=== PATIENT | female | born 1975 | race Caucasian/White ===

== ENCOUNTER 2019-04-17 19:16 | Inpatient (IN) | payer OTHER, MEDICARE, SELFPAY ==
[2019-04-17] VITALS (8 sets, daily range): BP systolic 171–178; BP diastolic 101–102; PULSE 80–94; RESP 18; TEMP 36.6–37.3; O2SAT 93–95; BMI 37.5; BMI 37.6
--- NOTE | 2019-04-17 19:19 | EKG12_ITS ---
Test Reason : CP Blood Pressure : / mmHG Vent. Rate : 088 BPM Atrial Rate : 088 BPM P-R Int : 202 ms QRS Dur : 118 ms QT Int : 450 ms P-R-T Axes : 052 037 058 degrees QTc Int : 544 ms Normal sinus rhythm Possible Left atrial enlargement Incomplete left bundle branch block Nonspecific ST abnormality Prolonged QT Abnormal ECG Confirmed by PREMA MARTIN, HUSAM ([id number]), editor magazine DERIK LAM ([id number]) on 04/23/2019 9:38:12 AM Referred By: Dillon Cole Confirmed By:NADYA LLOYD MD
--- NOTE | 2019-04-17 19:27 | ED.VIS.GEN ---
History of Present Illness Chief Complaint: Chest Pain Informant: Patient Onset: Today Current Severity: Mild Narrative: Patient indicates she was walking with a call the heart walk almost a Two Mile Walk it basically involved this Two [place] Walk up and down some slight hills she did develop some shortness of breath and some chest discomfort she is brought to hospital EMS. 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 At this time she is feeling better she has had no abdominal pain some nausea no vomiting normal bowel bladder habits she is status post cholecystectomy 7 years ago Past Medical History - Allergies and Home Meds Allergies/Adverse Reactions: Allergies calcium [From DHEA] Allergy (Verified 04/17/19 19:27) Chest tightness calcium carbonate [From DHEA] Allergy (Verified 04/17/19 19:27) Chest tightness cephalexin [From Keflex] Allergy (Verified 04/17/19 19:27) Rash ketorolac [From Toradol] Allergy (Verified 04/17/19 19:27) Angioedema oxycodone [From Percocet] Allergy (Verified 04/17/19 19:27) Angioedema prasterone (DHEA) [From DHEA] Allergy (Verified 04/17/19 19:27) Chest tightness sumatriptan [From Imitrex] Allergy (Verified 04/17/19 19:27) Swelling azithromycin Adverse Reaction (Verified 04/17/19 19:27) Unknown ondansetron [From Zofran (as hydrochloride)] Adverse Reaction (Verified 04/17/19 19:27) Other Primary Care Physician: [facility] Doctor,Out of [NON-STAFF] - Past Medical History: - - As above the cardiomyopathy causes unspecified per patient not related to ischemic heart disease or valvular heart disease Surgical History: appendectomy, cholecystectomy, hysterectomy Smoking Status: Current every day smoker - Family History Maternal Family History: Reports: Diabetes, Heart Disease Review of Systems General: Denies: Chills, Fever, Sweats Eyes: Denies: Visual changes - bilaterally, Diplopia ENT: Denies: Rhinorrhea, Sore throat Cardiovascular: Reports: Chest pain. Denies: Palpitations Respiratory: Denies: Dyspnea, Cough, Dyspnea on exertion Gastrointestinal: Denies: Abdominal pain, Nausea, Vomiting, Diarrhea, Melena, Hematochezia Genitourinary: Denies: Dysuria, Hematuria, Frequency Musculoskeletal: Denies: Back pain, Extremity Pain Skin: Denies: Rash, Wounds Neurological: Denies: Headache, Weakness, Numbness Physical Exam Vital Signs/Narrative: Vital Signs Temp Pulse Resp BP Pulse Ox 04/17/19 19:16 99.1 F 87 18 171/101 H 94 General: Well nourished, Well developed, No Acute Distress Head: Normocephalic, Atraumatic Eyes: Perrl, EOMI ENT: Moist mucous membranes, No rhinorrhea Neck: Supple, Nontender Cardiovascular: Regular rate, Regular rhythm, No murmurs Respiratory: No distress, CTA bilaterally, Chest nontender Abdomen: Soft, Nontender, Nondistended, Normal bowel sounds Back: Nontender, Normal Inspection Extremities: Nontender, No edema Skin: Normal color, No rash Neurological: Alert, Oriented x3, Cranial nerves II-XII grossly intact, Normal Strength, Normal Sensation Psychological: Normal affect, Normal Mood Diagnostic/Tx/Re-eval - Medical Decision Making His vital signs are unremarkable clinically she looks well she is in no distress she is feeling better now that she is now walking she indicates walking almost 2 miles is very unusual for her to know he does not exert herself to that degree she assures me she recently had a cardiac cath that showed no signs of CAD or ischemic heart disease or valvular heart disease she is been doing well on all her medications, this time EKG is obtained labs chest x-ray IV fluids and observation His EKG is unremarkable showing sinus rhythm no acute injury pattern rate about 90 no change from previous, Screening labs chest x-ray are all unremarkable, continues to have very mild central chest pain second EKG again shows no injury pattern rate again about 90 Complaints given her history of cardiomyopathy given the chest pain I have asked the hospital see her for admission and further management Admit stable Final impression chest pain history of cardiomyopathy ED Disposition - Plan for ED Patient: Diagnosis: Chest pain Referrals: [facility] Doctor,Out of [NON-STAFF] -
--- NOTE | 2019-04-17 19:35 | RAD_ITS ---
STUDY: X-RAY CHEST REASON FOR EXAM: Female, 44 years old. Chest pain and dizziness TECHNIQUE: Single AP portable view of the chest. COMPARISON: Previous study of 02/20/2017 FINDINGS: monitoring analyst leads are present. The lungs are clear and expanded. There is no demonstrated pleural abnormality. There is mild cardiac enlargement. Normal mediastinum and cris. Normal visualized pulmonary arteries. Normal visualized aortic arch and descending thoracic aorta. Normal visualized thoracic spine. Normal visualized ribs, clavicles, and shoulders. There is no demonstrated abnormality of the visualized soft tissue structures of the upper abdomen. RAD/Chest 1 View (Portable) IMPRESSION: Mild cardiomegaly. No acute cardiopulmonary disease process is seen. Electronically Signed: Markus Wen MD at 19:53 EDT , Service support ,
[2019-04-17 20:33] LABS: Absolute Lymphocyte Count 5.21 X10^3/uL (0.83-4.51); Absolute Neutrophil Count 11.7 X10^3/uL (2.0-7.7); Basophil% 0.5 % (0-1); Eosinophil# 0.23 X10^3/uL; Eosinophils% 1.2 % (0-5); Hematocrit 36.5 % (37-47); Hemoglobin 13.3 g/dL (12.0-15.0); Lymphocyte # 5.21 X10^3/ul (4.0); Lymphocyte % 28.1 % (19-41); Mean Corp Hgb Conc 36.4 g/dL (32-36); Mean Corpuscular Volume 85.1 fL (81-99); Mean Platelet Vol. 9.7 fl (6.2-12.0); Monocyte# 0.97 X10^3/uL; Monocyte% 5.2 % (0-10); NRBC Flagged by Analyzer 0 % (0-5); Neutrophil # 11.73 X10^3/uL (2.7-7.7); Neutrophil % 63.4 % (47-70); POSITIVE DIFFERENTIAL YES; Platelet Count 407 K/mm3 (150-450); RBC Distribution Width CV 12.6 % (11.6-14.6); RBC Distribution Width SD 38.9 fl (35.1-43.9); Red Blood Count 4.29 M/mm3 (4.2-5.4); White Blood Count 18.5 K/mm3 (4.4-11.0)
[2019-04-17 20:48] LABS: Differential Indicated SCAN CRITERIA MET
[2019-04-17 21:06] LABS: Anion Gap 11 (5-15); BUN 10 mg/dL (7-18); BUN/Creat Ratio 16.2 RATIO (10-20); Chloride 94 mmol/L (98-107); Creatinine, Serum 0.62 mg/dL (0.55-1.02); EST Glomerular Filtration Rate 113 mL/min (>60); Est Glom Filt Rate - Afr Amer 137 mL/min (>60); Estimated Creatinine Clearance 106.36 ml/min; Glucose 108 mg/dL (74-106); Potassium 2.8 mmol/L (3.5-5.1); Sodium Level 132 mmol/L (136-145)
[2019-04-17 21:08] LABS: Platelet Estimate ADEQUATE (ADEQ); Red Cell Morphology NORM C+C NORMAL (NORM C&C)
--- NOTE | 2019-04-17 21:16 | EKG12_ITS ---
Test Reason : REPEAT Blood Pressure : / mmHG Vent. Rate : 086 BPM Atrial Rate : 086 BPM P-R Int : 196 ms QRS Dur : 114 ms QT Int : 436 ms P-R-T Axes : 059 057 065 degrees QTc Int : 521 ms Normal sinus rhythm Possible Left atrial enlargement Incomplete left bundle branch block Prolonged QT Abnormal ECG Confirmed by PREMA MARTIN, HUSAM ([id number]), international editorial producer DERIK LAM ([id number]) on 04/23/2019 9:38:29 AM Referred By: Dillon Cole Confirmed By:NADYA LLOYD MD
[2019-04-17] MEDS: proMETHazine 25 MG Tablet PO (21:37)
[2019-04-17] MEDS: morphine 8 MG/ML Syringe SC (21:37)
--- NOTE | 2019-04-17 22:05 | HP.PCM_ITS ---
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) Chronic back pain (Chronic) Benign essential HTN (Chronic) Allergies calcium [From DHEA] Allergy (Verified 04/17/19 19:27) Chest tightness calcium carbonate [From DHEA] Allergy (Verified 04/17/19 19:27) Chest tightness cephalexin [From Keflex] Allergy (Verified 04/17/19:) Rash ketorolac [From Toradol] Allergy (Verified 04/17/19 19:) Angioedema oxycodone [From Percocet] Allergy (Verified 04/17/19:) Angioedema prasterone (DHEA) [From DHEA] Allergy (Verified 04/17/19:) Chest tightness sumatriptan [From Imitrex] Allergy (Verified 04/17/19:27) Swelling azithromycin Adverse Reaction (Verified 04/17/19 19:) Unknown ondansetron [From Zofran (as hydrochloride)] Adverse Reaction (Verified 04/17/19 19:) Other Home Medications: Ambulatory Orders Medication Instructions Recorded Amlodipine Besylate [Norvasc] 10 mg PO DAILY PRN PRN 01/28/17 Clonazepam [Klonopin] 1 mg PO TID PRN PRN 01/28/17 Lamotrigine [Lamictal] 200 mg PO QHS 01/28/17 Lisinopril [Zestril] 20 mg PO BID 01/28/17 Metoprolol(XL)Succ [Toprol Xl 100 mg PO DAILY 01/28/17 (Beta Radha)] Paliperidone [Invega] 9 mg PO QHS 01/28/17 Tizanidine HCl [Zanaflex] 4 mg PO TID 01/28/17 hydrALAZINE [Apresoline] 100 mg PO TID 01/28/17 Diphenhydramine HCl [Allergy 25 mg PO PRN PRN 02/20/17 Medication] Gabapentin [Neurontin] 600 mg PO TIDCM 02/20/17 Dicyclomine HCl [Bentyl] 20 mg PO TIDAC #20 cap 07/23/17 Docusate Sodium [Colace] 100 mg PO DAILY #20 cap 01/15/18 Furosemide 40 mg PO DAILY 07/23/17 Zolpidem Tartrate [Ambien] 10 mg PO QHS 07/23/17 proMETHazine tablet [Phenergan] 25 mg PO Q6H PRN PRN #10 tab 07/23/17 Surgical History: appendectomy, cholecystectomy, hysterectomy Psychiatric History: Bipolar - sees psychiatry in [place] Smoking Status: Current every day smoker - *Family History Maternal History Items: Diabetes, Heart Disease Patient Problems: Active and Suspected Problems Chest pain (Acute) - Physical Exam Vital Signs Temp Pulse Resp BP Pulse Ox 99.1 F 94 18 171/101 H 93 04/17/19 19:16 04/17/19 20:32 04/17/19 20:32 04/17/19 19:16 04/17/19 19:28 Oxygen Flow Rate (L/min) 2 Oxygen Delivery Method Nasal Cannula Weight: 225 lb 12.054 oz Body Mass Index (BMI) 37.5 Laboratory Tests Past 24 Hrs 04/17/19 04/17/19 20:20 20:20 WBC 18.5 H RBC 4.29 Hgb 13.3 Hct 36.5 L MCV 85.1 MCH 31.0 MCHC 36.4 H RDW Std Deviation 38.9 RDW Coeff of Caden 12.6 Plt Count 407 MPV 9.7 Immature Gran % (Auto) 1.600 H Neut % (Auto) 63.4 Lymph % (Auto) 28.1 [place] % (Auto) 5.2 Eos % (Auto) 1.2 Baso % (Auto) 0.5 Absolute Neuts (auto) 11.7 H Absolute Lymphs (auto) 5.21 H Nucleated RBC % 0 Differential Comment SEE COMMENT Diff Path Review May foll Platelet Estimate ADEQUATE RBC Morphology NORM C+C Sodium 132 L Potassium 2.8 L Chloride 94 L Carbon Dioxide 27.0 Anion Gap 11 BUN 10 Creatinine 0.62 Estim Creat Clear Calc 106.36 Est GFR (MDRD) Af Amer 137 Est GFR (MDRD) Non-Af 113 BUN/Creatinine Ratio 16.2 Glucose 108 H Calcium 9.0 Troponin I 0.034 Assessment/Plan All Active Problems Chest pain (Acute) Hypertensive urgency, malignant (Acute) Diabetes (Acute) Anxiety (Acute)
--- NOTE | 2019-04-17 22:06 | PCM.HP.STD ---
Problem List (1) Chest pain Status: Acute (2) Hypertensive urgency, malignant Status: Acute (3) Diabetes Status: Chronic Qualifiers: Diabetes mellitus type: type 2 Diabetes mellitus superintendent container terminal insulin use: without superintendent container terminal use Diabetes mellitus complication status: without complication Qualified Code(s): E11.9 - Type 2 diabetes mellitus without complications (4) Anxiety Status: Acute (5) DJD (degenerative joint disease) of lumbar spine Status: Chronic (6) Chronic back pain Status: Chronic Qualifiers: Back pain location: low back pain Back pain laterality: midline Sciatica presence: without sciatica Qualified Code(s): M54.5 - Low back pain; G89.29 - Other chronic pain (7) Benign essential HTN Status: Chronic History of Present Illness Date of Admission: 04/17/19 Chief Complaint: Chest pain The patient is a 44 year old F with history of hypertensive cardiomyopathy, uncontrolled hypertension came to ER for chest pain. Chest pain started while patient was walking Two Mile Walk, started about 6:00 evening today and is still persistent although it is improved. Patient felt like smoldering midsternal pain with radiation to jaw associated with shortness of breath, palpitation but no diaphoresis. She also felt dizziness and feeling like pass out. Patient also sent she had a history of anxiety. Complaint of frontal headache but no blurry vision, diplopia or hemianopia. Patient was admitted for hypertension emergency in ICU in January 2017 and at that time blood pressure was controlled and MRI brain was done which shows empty sella syndrome. Patient had last severe chest pain about 2 years ago for which a stress test was inconclusive therefore had cardiac cath which was negative. She also gets intermittent chest pain on exertion/walking. In ED, blood pressure is elevated 171/101, map 124, heart rate 87 no tachypnea or hypoxia. Basic blood work shows leukocytosis 18.5 thousand, neutrophils 63%. Sodium 132, K2.8, glucose 108. First troponin negative. EKG in ER shows normal sinus rhythm possible LAE at 90 bpm. Previous EKG of February 2017 shows similar pattern normal sinus rhythm with first-degree AV block. QTc interval has prolonged, QTC 482 ms then but now 521 ms. Patient also complained of mild cough but denies sinus congestion, runny nose or sore throat. Chest x-ray no acute cardiopulmonary disease. 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) Chronic back pain (Chronic) Benign essential HTN (Chronic) Allergies calcium [From DHEA] Allergy (Verified 04/17/19:) Chest tightness calcium carbonate [From DHEA] Allergy (Verified 04/17/19:) Chest tightness cephalexin [From Keflex] Allergy (Verified 04/17/19:) Rash ketorolac [From Toradol] Allergy (Verified 04/17/19) Angioedema oxycodone [From Percocet] Allergy (Verified 04/17/19) Angioedema prasterone (DHEA) [From DHEA] Allergy (Verified 04/17/19:) Chest tightness sumatriptan [From Imitrex] Allergy (Verified 04/17/19) Swelling azithromycin Adverse Reaction (Verified 04/17/19) Unknown ondansetron [From Zofran (as hydrochloride)] Adverse Reaction (Verified 04/17/19) Other Home Medications: Ambulatory Orders Medication Instructions Recorded Amlodipine Besylate [Norvasc] 10 mg PO DAILY PRN PRN 01/28/17 Clonazepam [Klonopin] 1 mg PO TID PRN PRN 01/28/17 Lamotrigine [Lamictal] 200 mg PO QHS 01/28/17 Lisinopril [Zestril] 20 mg PO BID 01/28/17 Metoprolol(XL)Succ [Toprol Xl 100 mg PO DAILY 01/28/17 (Beta Radha)] Paliperidone [Invega] 9 mg PO QHS 01/28/17 Tizanidine HCl [Zanaflex] 4 mg PO TID 01/28/17 hydrALAZINE [Apresoline] 100 mg PO TID 01/28/17 Diphenhydramine HCl [Allergy 25 mg PO PRN PRN 02/20/17 Medication] Gabapentin [Neurontin] 600 mg PO TIDCM 02/20/17 Dicyclomine HCl [Bentyl] 20 mg PO TIDAC #20 cap 07/23/17 Docusate Sodium [Colace] 100 mg PO DAILY #20 cap 07/23/17 Furosemide 40 mg PO DAILY 07/23/17 Zolpidem Tartrate [Ambien] 10 mg PO QHS 07/23/17 proMETHazine tablet [Phenergan] 25 mg PO Q6H PRN PRN #10 tab 07/23/17 Surgical History: appendectomy, cholecystectomy, hysterectomy Psychiatric History: Bipolar - sees psychiatry in [place] Smoking Status: Current every day smoker - *Family History Maternal History Items: Diabetes, Heart Disease Review of Systems Constitutional: Reports: Malaise, Weakness. Denies: Chills, Fever, Weight Change HEENT: Denies: Head Aches, Sinus Congestion, Sinus Drainage Cardiovascular: Reports: Chest Pain, Chest Pressure, Edema, Palpitations Respiratory: Reports: Cough, Shortness of breath upon exertion. Denies: Shortness of breath at rest, Sputum production Gastrointestinal: Denies: Abdominal Pain, Nausea, Vomiting Genitourinary: Denies: Dysuria, Frequency, Incontinence, Retention, Urgency Musculoskeletal: Denies: Joint Pain, Joint Tenderness Skin: Denies: Rash, Wounds Neurological: Denies: Numbness, Tingling, Focal weakness Psychiatric: Reports: Anxiety, Depression. Denies: Homicidal Ideations, Suicidal Ideations Hematologic/ Lymphatic: Denies: Easy Bruising, Easy Bleeding VTE Information - Inpt Only VTE Present on Admission: No VTE Mechan Device Prophylaxis: None VTE Pharm Prophylaxis ordered?: Yes Patient Problems: Active and Suspected Problems Chest pain (Acute) - Physical Exam General: Alert, Oriented x3, Cooperative HEENT: Atraumatic, PERRLA, EOMI, Normocephalic Neck: Supple, No JVD, Negative Carotid Bruits Lungs: Clear to auscultation, Normal air movement, No rhonchi, No wheeze, No rales Cardiovascular: Regular rate, Regular Rhythm, Normal S1, Normal S2, No murmurs Abdomen: Bowel Sounds Present, Soft, Non Tender, Non-Distended Extremities: Capillary Refill Less than 3 Seconds, Edema - Mild ankle edema Skin: No rashes, No breakdown Musculoskeletal: No Tenderness to Palpation of Joints or Extremities Neurological: Cranial nerves II-XII grossly intact, Deep Tendon Reflexes 2+/4 and Symmetrical, Neuro grossly intact, Motor Exam 5/5 strength throughout Psych/Mental Status: Normal Affect, Appropriate Vital Signs Temp Pulse Resp BP Pulse Ox 99.1 F 94 18 171/101 H 93 04/17/19 19:16 04/17/19 20:32 04/17/19 20:32 04/17/19 19:16 04/17/19 19:28 Oxygen Flow Rate (L/min) 2 Oxygen Delivery Method Nasal Cannula Weight: 225 lb 12.054 oz Body Mass Index (BMI) 37.5 Laboratory Tests Past 24 Hrs 04/17/19 04/17/19 20:20 20:20 WBC 18.5 H RBC 4.29 Hgb 13.3 Hct 36.5 L MCV 85.1 MCH 31.0 MCHC 36.4 H RDW Std Deviation 38.9 RDW Coeff of Caden 12.6 Plt Count 407 MPV 9.7 Immature Gran % (Auto) 1.600 H Neut % (Auto) 63.4 Lymph % (Auto) 28.1 [place] % (Auto) 5.2 Eos % (Auto) 1.2 Baso % (Auto) 0.5 Absolute Neuts (auto) 11.7 H Absolute Lymphs (auto) 5.21 H Nucleated RBC % 0 Differential Comment SEE COMMENT Diff Path Review May foll Platelet Estimate ADEQUATE RBC Morphology NORM C+C Sodium 132 L Potassium 2.8 L Chloride 94 L Carbon Dioxide 27.0 Anion Gap 11 BUN 10 Creatinine 0.62 Estim Creat Clear Calc 106.36 Est GFR (MDRD) Af Amer 137 Est GFR (MDRD) Non-Af 113 BUN/Creatinine Ratio 16.2 Glucose 108 H Calcium 9.0 Troponin I 0.034 Assessment/Plan All Active Problems Chest pain (Acute) Hypertensive urgency, malignant (Acute) Anxiety (Acute) The patient is a 44 year old F with history of hypertensive cardiomyopathy, uncontrolled hypertension came to ER for chest pain. Chest pain started while patient was walking [place] Walk, started about 6:00 evening today and is still persistent although it is improved. Patient felt like smoothing midsternal pain with radiation to jaw associated with shortness of breath, palpitation but no diaphoresis. She also felt dizziness and feeling like pass out. Patient also sent she had a history of anxiety. Complaint of frontal headache but no blurry vision, diplopia or hemianopia. . Basic blood work shows leukocytosis 18.5 thousand, neutrophils 63%. Sodium 132, K2.8, glucose 108. First troponin negative. EKG in ER shows normal sinus rhythm possible LAE at 90 bpm. Previous EKG of February 2017 shows similar pattern normal sinus rhythm with first-degree AV block. QTc interval has prolonged, QTC 482 ms then but now 521 ms. Patient also complained of mild cough but denies sinus congestion, runny nose or sore throat. Chest x-ray no acute cardiopulmonary disease. 1. Atypical chest pain with history of hypertensive cardiomyopathy: Patient is being admitted in PCU. Serial troponin enzymes. Treadmill nuclear stress test tomorrow a.m. Try to get previous stress test, cardiac cath and other work-up done in [facility] about 2 to 3 years ago. On baby aspirin, nitro sublingual as needed. 2. Hypertensive urgency with hypertensive cardiomyopathy and possible nonischemic cardiomyopathy, exact etiology and type unclear: Mild cardiac enlargement chest x-ray. Continue patient blood pressure medication amlodipine 10 mg daily, lisinopril 20 mg twice daily, hydralazine 100 mg 3 times daily and metoprolol. She states he has mild congestive heart failure and on Lasix 40 mg daily. Patient seems dehydrated with hyponatremia and hypokalemia; chest x-ray is clear and no significant leg swelling therefore will hold Lasix. 2D echo ordered. Hydralazine 10 mg IV every 4 hourly as needed for systolic blood pressure more than 170 mmHg. BNP ordered Patient was admitted for hypertension emergency in ICU in January 2017 and at that time blood pressure was controlled and MRI brain was done which shows empty sella syndrome. 3. Leukocytosis, etiology unclear: Respiratory panel ordered. No fever or chills. UA with reflex urine culture ordered. No need for antibiotic. 4. Electrolyte abnormality: Hyponatremia, hypokalemia and hypochloremia probably secondary to dehydration: IV fluid normal saline at 125 mill per hour. Potassium replacement. Check magnesium and phosphorus. Anxiety, nausea, generalized weakness secondary to heart walk: Symptomatic management. Medication reconciliation done. DVT prophylaxis: Lovenox 40 mg subcu daily Laboratory Results 04/17/19 20:20: WBC 18.5 H, RBC 4.29, Hgb 13.3, Hct 36.5 L, MCV 85.1, MCH 31.0, MCHC 36.4 H, RDW Std Deviation 38.9, RDW Coeff of Caden 12.6, Plt Count 407, MPV 9.7, Immature Gran % (Auto) 1.600 H, Neut % (Auto) 63.4, Lymph % (Auto) 28.1, [place] % (Auto) 5.2, Eos % (Auto) 1.2, Baso % (Auto) 0.5, Absolute Neuts (auto) 11.7 H, Absolute Lymphs (auto) 5.21 H, Nucleated RBC % 0, Differential Comment SEE COMMENT, Diff Path Review May foll, Platelet Estimate ADEQUATE, RBC Morphology NORM C+C 04/17/19 20:20: Sodium 132 L, Potassium 2.8 L, Chloride 94 L, Carbon Dioxide 27.0, Anion Gap 11, BUN 10, Creatinine 0.62, Estim Creat Clear Calc 106.36, Est GFR (MDRD) Af Amer 137, Est GFR (MDRD) Non-Af 113, BUN/Creatinine Ratio 16.2, Glucose 108 H, Calcium 9.0, Troponin I 0.034 Clinical Impression(s) from Imaging Studies Chest X-Ray 04/17/19 19:35 IMPRESSION: Mild cardiomegaly. No acute cardiopulmonary disease process is seen. Code Visit OBSV E&M: [id number] Initial observation care L3
--- NOTE | 2019-04-17 22:42 | ECHOCS_ITS ---
Reason For Study: Cardiomyopathy Procedure This was a 2D Doppler, Color Flow transthoracic echocardiogram. The study was technically difficult. Contrast injection was performed. Patient had symptoms of chest pain, dizziness and HTN while at the Heart Walk on 04/17/2019. Exam performed portable in ICU/CCU. Left Ventricle Severe concentric left ventricular hypertrophy. The estimated ejection fraction is 65 %. Stage 1 diastolic dysfunction. No regional wall motion abnormalities noted. Right Ventricle Normal size and thickness. Normal systolic function. Atria Normal left atrium. Normal right atrium. Normal atrial septum. Mitral Valve The mitral valve is structurally normal. No prolapse or stenosis seen. Trivial mitral valve insufficiency. Tricuspid Valve Normal tricuspid valve. Trivial tricuspid valve insufficiency. Right ventricular systolic pressure estimated to be 23 mmHg. Aortic Valve Trisinus/trileaflet aortic valve. Normal aortic valve. Pulmonic Valve Normal pulmonic valve. Trivial pulmonic valve insufficiency. Great Vessels Normal aortic root. Normal arch. Normal inferior vena cava. Inferior vena cava collapse with sniff. Pericardium/Pleural No pericardial effusion. Medication Diluted definity 2ml given slow IV push to enhance endocardial definition. MMode/2D Measurements & Calculations LVIDd: 4.5 cm IVSd: 2.2 cm Ao root diam: 3.3 cm LVIDs: 3.5 cm LVPWd: 1.6 cm FS: 22.2 % LAV(MOD-bp): 63.7 ml LVAd ap4: 36.9 cm2 SV(MOD-sp4): 83.6 ml LAV(MOD-bp) Indexed: 30.6 ml/m2 EDV(MOD-sp4): 128.8 ml LAV(MOD-sp2): 65.5 ml EDV(sp4-el): 135.1 ml LAV(MOD-sp4): 61.6 ml LVAs ap4: 19.5 cm2 ESV(MOD-sp4): 45.2 ml ESV(sp4-el): 45.1 ml EF(MOD-sp4): 64.9 % EF(sp4-el): 66.6 % SV(sp4-el): 90.0 ml LA A4 area: 21.0 cm2 Time Measurements MV dec time: 0.26 sec Doppler Measurements & Calculations MV E max ramin: 66.1 cm/sec Lat Peak E' Ramin: 5.0 cm/sec Med Peak E' Ramin: 5.7 cm/sec MV A max ramin: 75.1 cm/sec E/E' lat: 13.3 E/E' med: 11.6 MV E/A: 0.88 MV V2 max: 87.4 cm/sec MV P1/2t max ramin: 80.2 cm/sec Ao V2 max: 159.4 cm/sec MV max P.1 mmHg MV P1/2t: 57.0 msec Ao max P.2 mmHg MV V2 mean: 50.8 cm/sec Ao V2 mean: 102.2 cm/sec MV mean P.2 mmHg MV dec slope: 412.7 cm/sec2 Ao mean P.9 mmHg MV V2 VTI: 29.5 cm MVA(P1/2t): 3.9 cm2 Ao V2 VTI: 27.0 cm LV V1 max: 122.7 cm/sec PA V2 max: 101.1 cm/sec LV V1 max P.0 mmHg LV V1 mean P.9 mmHg LV V1 mean: 78.4 cm/sec LV V1 VTI: 23.7 cm Interpretation Summary Severe concentric left ventricular hypertrophy. The estimated ejection fraction is 65 %. Stage 1 diastolic dysfunction. Trivial mitral valve insufficiency. Trivial tricuspid valve insufficiency. Right ventricular systolic pressure estimated to be 23 mmHg. There is no comparison study available. The study was technically difficult. Contrast injection was performed. Ordering Physician: Dillon Cole Referring Physician: Angel Carnes Performed By: Kvng Ba RCS
--- NOTE | 2019-04-17 22:42 | EKG12_ITS ---
Test Reason : CP ADMISSION Blood Pressure : / mmHG Vent. Rate : 077 BPM Atrial Rate : 077 BPM P-R Int : 194 ms QRS Dur : 120 ms QT Int : 478 ms P-R-T Axes : 044 044 060 degrees QTc Int : 540 ms Normal sinus rhythm Non-specific intra-ventricular conduction delay Borderline ECG When compared with ECG of 20-FEB-2017 08:13, QT has lengthened Confirmed by KATIE SOMERS ([id number]), school photograph editor DERIK LAM ([id number]) on 04/23/2019 10:38:47 AM Referred By: Dillon Cole Confirmed By:KATIE SOMERS
[2019-04-17 22:53] LABS: Magnesium 1.6 mg/dL (1.6-2.6)
[2019-04-17 23:11] LABS: BNP,B-Type NATRIURETIC PEPTIDE 91.6 pg/mL (0-100)
[2019-04-18] VITALS (43 sets, daily range): BP systolic 108–190; BP diastolic 44–125; PULSE 66–87; RESP 14–24; TEMP 36.3–37.2; O2SAT 91–98
[2019-04-18] MEDS: proCHLORPERazine 10 MG/2 ML Vial 5 MG IV ×5 (00:27→21:32)
[2019-04-18] MEDS: Morphine 2 MG/ML Syringe IV (00:28)
[2019-04-18] MEDS: 0.9% NaCl Peripheral Flush Adult/Peds IV ×7 (00:28→17:58)
[2019-04-18] MEDS: 0.9% Normal Saline 1,000 ML 125 ML IV (00:28)
[2019-04-18] MEDS: Enoxaparin 40 MG/0.4 ML Syringe SC (00:42)
[2019-04-18] MEDS: Metoprolol(XL)Succ 100 MG Tablet PO (00:43)
[2019-04-18] MEDS: Lisinopril 20 MG Tablet PO ×3 (00:43→21:30)
[2019-04-18] MEDS: amLODIPine 10 MG Tablet PO ×2 (00:43→09:01)
[2019-04-18 01:01] LABS: Mucous, Urine 0 SEEN /hpf (<or=2+); Red Blood Cells-Urine 0 SEEN /hpf (0-5); White Blood Cells 0 SEEN /hpf (0-5)
[2019-04-18 01:04] LABS: Color, Urine Straw (Yellow); Glucose, Dipstick Normal (Normal); Ketone-Dipstick Negative (Negative); Leukocyte Esterase-Dipstick Negative /ul (Negative); Nitrite-Dipstick Negative (Negative); Occult Blood-Urine Negative /ul (Negative); Protein-Dipstick Negative (Negative); Specific Gravity, Urine 1.005 (1.002-1.030); Urine Bilirubin Dipstick Negative (Negative); Urine Clarity Clear (Clear); Urine Urobilinogen Normal (Normal)
[2019-04-18 01:09] LABS: Squamous Epithelial Cells - UA 0-5 SEEN /hpf (5-10)
[2019-04-18 01:10] LABS: Bacteria RARE /hpf (None Seen)
[2019-04-18 02:00] LABS: Bedside Glucose 107 mg/dL (70-110)
[2019-04-18] MEDS: hydrALAZINE 20 MG/ML Vial 10 MG IV (02:19)
[2019-04-18] MEDS: Enoxaparin 60 MG/0.6 ML Syringe SC (02:20)
[2019-04-18] MEDS: Ziprasidone HCl 20 MG Capsule 160 MG PO (02:24)
[2019-04-18] MEDS: Morphine 4 MG/ML Syringe IV ×3 (02:33→21:31)
--- NOTE | 2019-04-18 02:49 | CT_ITS ---
STUDY: CTA CHEST REASON FOR EXAM: Female, 44 years old. Chest pain. Dyspnea. RADIATION DOSAGE (If Supplied By Facility): CTDIvol = ( 16.22 ) mGy, DLP = ( 1029.42 ) mGycm TECHNIQUE: The examination was performed with the intravenous administration of IV 100mL Isovue-370 100ML. Post-processing of the angiographic images was performed, with multiplanar reformation and 3D reconstruction. Individualized dose optimization techniques were used for this CT. COMPARISON: None. FINDINGS: Normal enhancement of the main pulmonary artery and right and left pulmonary arteries. Normal enhancement of the bilateral peripheral pulmonary arteries. There is no demonstrated pulmonary embolism. Normal thoracic aorta and visualized great vessels. There is no demonstrated aortic dissection. Normal heart and pericardium. Normal mediastinum. Normal hilar regions. Normal visualized trachea and bronchi. The lungs are well expanded. Patchy alveolar opacities are seen in both lungs more prominent in the right upper lobe, right middle lobe and right lower lobe most likely represent bilateral pneumonia. There is a 1.7 cm nodule with central calcification is seen in the posterior segment of right lung upper lobe is most likely a granuloma. Normal pleura. Normal chest wall structures. Normal osseous structures. Normal visualized upper abdomen. CT/CTA Chest W/WO Contrast IMPRESSION: No demonstrated pulmonary embolism or arterial dissection. Bilateral patchy pneumonia. There is a 1.7 cm nodule with central calcification is seen in the posterior segment of right lung upper lobe is most likely a granuloma. Follow-up in 6 month would be helpful to ensure stability. Electronically Signed: Mata Bang, at 5:09 EDT Tel , Service support ,
[2019-04-18 03:18] LABS: Anion Gap 8 (5-15); BUN 5 mg/dL (7-18); BUN/Creat Ratio 10.8 RATIO (10-20); Calcium,Total 9.1 mg/dL (8.5-10.1); Chloride 99 mmol/L (98-107); Cholesterol 182 mg/dL (200); Creatinine, Serum 0.46 mg/dL (0.55-1.02); EST Glomerular Filtration Rate 157 mL/min (>60); Est Glom Filt Rate - Afr Amer 190 mL/min (>60); Estimated Creatinine Clearance 137.58 ml/min; Glucose 106 mg/dL (74-106); High Density Lipoprotein 37 mg/dL; Phosphorus 3.1 mg/dL (2.5-4.9); Potassium 3.4 mmol/L (3.5-5.1); Sodium Level 134 mmol/L (136-145); Triglycerides 418 mg/dL
[2019-04-18 03:28] LABS: Absolute Lymphocyte Count 6.97 X10^3/uL (0.83-4.51); Basophil# 0.14 X10^3/uL; Basophil% 0.8 % (0-1); Eosinophil# 0.19 X10^3/uL; Hematocrit 39.6 % (37-47); Hemoglobin 14.1 g/dL (12.0-15.0); Lymphocyte # 6.97 X10^3/ul (4.0); Lymphocyte % 37.5 % (19-41); Mean Corp Hgb Conc 35.6 g/dL (32-36); Mean Corpuscular Hgb 30.4 pg (27.0-32.0); Mean Corpuscular Volume 85.3 fL (81-99); Mean Platelet Vol. 11.2 fl (6.2-12.0); Monocyte# 1.07 X10^3/uL; Monocyte% 5.7 % (0-10); NRBC Flagged by Analyzer 0 % (0-5); Neutrophil # 10.02 X10^3/uL (2.7-7.7); Neutrophil % 53.8 % (47-70); POSITIVE DIFFERENTIAL YES; POSITIVE MORPHOLOGY YES; Platelet Count 303 K/mm3 (150-450); RBC Distribution Width CV 12.6 % (11.6-14.6); RBC Distribution Width SD 38.5 fl (35.1-43.9); Red Blood Count 4.64 M/mm3 (4.2-5.4); White Blood Count 18.6 K/mm3 (4.4-11.0)
[2019-04-18 03:29] LABS: Differential Indicated SCAN CRITERIA MET
[2019-04-18] MEDS: Nitroglycerin Infusion 250 ML 12 MG CONT INF (03:39)
[2019-04-18] MEDS: Clopidogrel Bisulfate 300 MG Tablet PO (03:56)
[2019-04-18 04:35] LABS: International Normalized Ratio 1.1; Prothrombin Time (Protime)PT. 13.6 SECONDS (11.7-14.9)
[2019-04-18 04:40] LABS: Partial Thromboplast Time 38.7 Seconds (24.1-36.2)
[2019-04-18 05:00] LABS: Hemoglobin A1c 6.6 % (4.2-6.3)
[2019-04-18] MEDS: hydrALAZINE 50 MG Tablet 100 MG PO ×3 (05:59→21:30)
[2019-04-18] MEDS: cloNIDine HCl 0.2 MG Tablet PO ×3 (06:02→21:29)
[2019-04-18 06:05] LABS: Thyroid Stim Hormone (TSH) 3.19 uIU/mL (0.358-3.74)
[2019-04-18 06:30] LABS: Bedside Glucose 139 mg/dL (70-110)
--- NOTE | 2019-04-18 07:21 | PN_ITS ---
Patient Problems: Active and Suspected Problems Chest pain (Acute) Subjective: CC follow-up chest pain Patient is a 44-year-old lady admitted with chest pain patient was found to have slightly elevated troponin. Was also found to have markedly elevated blood pressure started on nitroglycerin drip and subsequently transferred to the intensive care unit. Objective: GENERAL: cooperative HEENT: Atraumatic; moist oral mucosa EYES; Anicteric, Normal Conjunctiva NECK; supple, normal thyroid, no distended JVD. RESPIRATORY: Diminished to auscultation bilaterally, CARDIOVASCULAR: Regular S1 S2, no audible murmurs GI: soft, non-tender, normoactive bowel sounds, : No Renal angle tenderness; EXTREMITIES: No edema, no clubbing, no cyanosis. MUSCULOSKELETAL: No Joint Tenderness; no muscle waisting NEURO: Awake; no lateralizing signs. SKIN: No Rash PSYCH; Normal affect Vitals/I&O's: Vital Signs Temp Pulse Resp BP Pulse Ox 98.7 F 71 18 139/88 H 97 04/18/19 06:04 04/18/19 06:04 04/18/19 06:04 04/18/19 06:04 04/18/19 06:04 Oxygen Flow Rate (L/min) 2 Oxygen Delivery Method Nasal Cannula Weight: 97.8 kg Body Mass Index (BMI) 37.5 Intake and Output for Last 24 Hours 04/16/19 04/17/19 04/18/19 23:59 23:59 23:59 Intake Total 923.42 / 923.42 Output Total 700 / 700 Balance 223.42 / 223.42 Microbiology Past 72 Hours 04/17/19 22:50 Mucosa - Nasopharyngeal Respiratory Panel (PCR) - Final Laboratory Results 04/17/19 20:20: WBC 18.5 H, RBC 4.29, Hgb 13.3, Hct 36.5 L, MCV 85.1, MCH 31.0, MCHC 36.4 H, RDW Std Deviation 38.9, RDW Coeff of Caden 12.6, Plt Count 407, MPV 9.7, Immature Gran % (Auto) 1.600 H, Neut % (Auto) 63.4, Lymph % (Auto) 28.1, [place] % (Auto) 5.2, Eos % (Auto) 1.2, Baso % (Auto) 0.5, Absolute Neuts (auto) 11.7 H, Absolute Lymphs (auto) 5.21 H, Nucleated RBC % 0, Differential Comment SEE COMMENT, Diff Path Review May katia, Platelet Estimate ADEQUATE, RBC Morphology NORM C+C 04/17/19 20:20: Sodium 132 L, Potassium 2.8 L, Chloride 94 L, Carbon Dioxide 27.0, Anion Gap 11, BUN 10, Creatinine 0.62, Estim Creat Clear Calc 106.36, Est GFR (MDRD) Af Amer 137, Est GFR (MDRD) Non-Af 113, BUN/Creatinine Ratio 16.2, Glucose 108 H, Calcium 9.0, Troponin I 0.034 04/17/19 20:20: Magnesium 1.6 04/17/19 20:20: B-Natriuretic Peptide 91.6 04/17/19 23:10: Troponin I 0.161 H 04/18/19 00:45: Urine Color Straw, Urine Clarity Clear, Urine pH 7.0, Ur Specific [place] 1.005, Urine Protein Negative, Urine Glucose (UA) Normal, Urine Ketones Negative, Urine Occult Blood Negative, Urine Nitrite Negative, Urine Bilirubin Negative, Urine Urobilinogen Normal, Ur Leukocyte Esterase Negative, Urine RBC 0 SEEN, Urine WBC 0 SEEN, Ur Squamous Epith Cells 0-5 SEEN, Urine Bacteria RARE, Urine Mucus 0 SEEN 04/18/19 01:53: POC Glucose 107 04/18/19 02:32: Sodium 134 L, Potassium 3.4 L, Chloride 99, Carbon Dioxide 27.0, Anion Gap 8, BUN 5 L, Creatinine 0.46 L, Estim Creat Clear Calc 137.58, Est GFR (MDRD) Af Amer 190, Est GFR (MDRD) Non-Af 157, BUN/Creatinine Ratio 10.8, Glucose 106, Calcium 9.1, Triglycerides 418 H, Cholesterol 182, LDL Cholesterol TNP, VLDL Cholesterol TNP, HDL Cholesterol 37 L, TSH 3.19 04/18/19 02:32: WBC 18.6 H, RBC 4.64, Hgb 14.1, Hct 39.6, MCV 85.3, MCH 30.4, MCHC 35.6, RDW Std Deviation 38.5, RDW Coeff of [place] 12.6, Plt Count 303, MPV 11.2, Immature Gran % (Auto) 1.200 H, Neut % (Auto) 53.8, Lymph % (Auto) 37.5, [place] % (Auto) 5.7, Eos % (Auto) 1.0, Baso % (Auto) 0.8, Absolute Neuts (auto) 10.0 H, Absolute Lymphs (auto) 6.97 H, Nucleated RBC % 0 04/18/19 02:32: Troponin I 0.146 H 04/18/19 02:32: Potassium Cancelled, Phosphorus 3.1 04/18/19 02:32: Hemoglobin A1c 6.6 H 04/18/19 03:50: PT 13.6, INR 1.1, APTT 38.7 H 04/18/19 06:24: POC Glucose 139 H Current Medications Acetaminophen (Tylenol) 650 mg PO Q6H PRN PRN PRN Reason: Pain Score 1-3/Temp > 100.7 F Amlodipine Besylate (Norvasc) 10 mg PO DAILY [facility] Last Admin: 04/18/19 00:43 Dose: 10 mg Documented by: Aspirin (Ecotrin) 81 mg PO DAILY@0800 [facility] Clonazepam (Klonopin) 1 mg PO TID PRN PRN PRN Reason: ANXIETY Clonidine (Catapres) 0.2 mg PO TID [facility] Last Admin: 04/18/19 06:02 Dose: 0.2 mg Documented by: Clopidogrel Bisulfate (Plavix) 75 mg PO DAILY [facility] Dextrose (D50w Syringe) 0 gm IV X1 PRN; Protocol PRN Reason: Hypoglycemia Diphenhydramine HCl (Benadryl) 25 mg PO Q6H PRN PRN PRN Reason: ITCHING Docusate Sodium (Colace) 100 mg PO DAILY [facility] Enoxaparin Sodium (Lovenox) 40 mg SC DAILY@1000 [facility] Last Admin: 04/18/19 00:42 Dose: 40 mg Documented by: Gabapentin (Neurontin) 600 mg PO TIDCM [facility] Glucagon () 1 mg IM .X1 PRN PRN Reason: Hypoglycemia Hydralazine HCl (Apresoline) 100 mg PO TID [facility] Last Admin: 04/18/19 05:59 Dose: 100 mg Documented by: Hydralazine HCl (Apresoline Iv) 10 mg IV Q4H PRN PRN PRN Reason: SBP>170 mmhg Last Admin: 04/18/19 02:19 Dose: 10 mg Documented by: Sodium Chloride () 1,000 mls @ 75 mls/hr IV .[id number] [facility] Last Infusion: 04/18/19 06:05 Dose: 75 mls/hr Documented by: Sodium Chloride () 250 mls @ 15 mls/hr IV .[id number] PRN PRN Reason: SALINE FLUSH Nitroglycerin/Dextrose () 250 mls @ 12 mls/hr CONT INF .[id number] [facility]; Protocol Last Titration: 04/18/19 06:04 Dose: 20 mcg/min, 12 mls/hr Documented by: Lamotrigine (Lamictal) 200 mg PO QHS [facility] Lisinopril (Zestril) 20 mg PO BID [facility] Last Admin: 04/18/19 00:43 Dose: 20 mg Documented by: Lorazepam (Ativan) 2 mg PO Q4H PRN PRN PRN Reason: ANXIETY Metoprolol Succinate (Toprol Xl (Beta Radha)) 100 mg PO DAILY [facility] Last Admin: 04/18/19 00:43 Dose: 100 mg Documented by: Morphine Sulfate () 4 mg IV Q3H PRN PRN PRN Reason: Pain Score 6-10/10 Last Admin: 04/18/19 02:33 Dose: 4 mg Documented by: Morphine Sulfate () 2 mg IV Q3H PRN PRN PRN Reason: Pain Score 4-5/10 Last Admin: 04/18/19 00:28 Dose: 2 mg Documented by: Oxcarbazepine (Trileptal) 600 mg PO DAILY [facility] Oxcarbazepine (Trileptal) 900 mg PO QHS [facility] Prochlorperazine Edisylate (Compazine Iv) 5 mg IV Q4H PRN PRN PRN Reason: Breakthrough Nausea/Vomiting Last Admin: 04/18/19 04:08 Dose: 5 mg Documented by: Senna/Docusate Sodium (Senokot-S, Christel-Colace) 2 tablet PO BID PRN PRN PRN Reason: Constipation Sodium Chloride () 5 - 15 ml IV UD PRN PRN Reason: SALINE FLUSH Last Admin: 04/18/19 04:08 Dose: 10 ml Documented by: Tizanidine HCl (Zanaflex) 4 mg PO TID PRN PRN PRN Reason: MUSCLE SPASMS Zolpidem Tartrate (Ambien (Generic)) 5 mg PO QHS PRN PRN Reason: INSOMNEA Medical Necessity - Tobacco Use Smoking Status: Current every day smoker Tobacco Use: Cigarettes Assessment/Plan All Active Problems Chest pain (Acute) Hypertensive urgency, malignant (Acute) Anxiety (Acute) Patient is a 44-year-old lady admitted with chest pain patient was found to have slightly elevated troponin. Was also found to have markedly elevated blood pressure started on nitroglycerin drip and subsequently transferred to the intensive care unit. 1. Unstable angina: ~Patient admitted to monitored bed managed per protocol with antiplatelet therapy, therapeutic Lovenox, beta-blockers and statin therapy. Echo was ordered and consultation placed to cardiology 2. Acute hypertensive emergency ~Presented with markedly elevated blood pressure. Patient and had evidence of endorgan damage as demonstrated above. Patient was started on nitroglycerin drip admitted to the intensive care unit titrated to keep blood pressure less than 160 3. Dyslipidemia ~Patient not previously on any statin therapy was started on Lipitor 80 mg daily 4. Hypokalemia ~Corrected per protocol 5. Hyponatremia ~Improved with rehydration 6. Schizoaffective disorder Patient is on Geodon and Trileptal plan is to resume home meds once his meds have been reconciled 7. Tobacco dependence ~counseled on cessation, offered nicotine patch for tobacco cravings 8. Obesity ~ with BMI of 35.9 weight loss advised 9. DVT prophylaxis ~ on enoxaparin Clinical Impression(s) from Imaging Studies Chest X-Ray 04/17/19 19:35 IMPRESSION: Mild cardiomegaly. No acute cardiopulmonary disease process is seen. Electronically Signed: Markus Wen MD at 19:53 EDT , Service support , Chest CTA 04/18/19 02:49 IMPRESSION: No demonstrated pulmonary embolism or arterial dissection. Bilateral patchy pneumonia. There is a 1.7 cm nodule with central calcification is seen in the posterior segment of right lung upper lobe is most likely a granuloma. Follow-up in 6 month would be helpful to ensure stability. Electronically Signed: Mata Bang, at 5:09 EDT Tel , Service support , Code Visit Inpatient E&M: 15072 Subs Hosp L3
--- NOTE | 2019-04-18 07:23 | NURSING ---
Nitro drip was not titrated through the night due to pt continually having 7/10 chest pain, the order states that the titration was for chest pain and keep MAP above 65. The nitro was not titrated up due to the pt's BP dropping with in a 15-30mins after the nitro drip was started it went from 170/109 to SBP in the 130's and 120's. Still this am pt is stating her Chest pain is a 7/10 nitro drip remains running at 20mcg/min.
[2019-04-18] MEDS: Aspirin E.C. 81 MG Tablet PO (08:16)
[2019-04-18] MEDS: Gabapentin 600 MG Tablet PO ×3 (08:17→17:07)
--- NOTE | 2019-04-18 09:18 | CON.PCM_ITS ---
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 Rylan Neri at [facility]. On 08/21/2014 she underwent an echocardiogram which showed an EF of 65% and mild left ventricular hypertrophy and RVSP of 27 mmHg. On 10/29/2014 the patient underwent a walking stress test and developed chest pain with decreased perfusion of the mid anterior wall. This gave way to a cardiac catheterization at [facility] which demonstrated a possible 50% mid LAD stenosis. This was evaluated with IFR by Dr. Fabian Trotter which was found to be 0.99 and 1.0 and no augmentation appeared to have been performed. According to the note there was some spasm which responded to IC nitroglycerin. Apparently the patient's arteries were attributed to spasm. Patient underwent repeat echocardiogram at [facility] in 08/27/2017 which showed moderate LVH, EF of 51%, 1+ MR, 1+ TR, and 1+ IA. In addition the patient underwent repeat catheterization by Dr. Kwon on 03/06/2018 at [facility] which showed an EF of 60%, and a 30% mid vessel stenosis of her LAD, minor luminal irregularities of her left circumflex and normal right coronary artery. At that time she was left for medical management. While walking at the heart walk last evening, and event which I attended as well, and took care of the patient, she developed severe 8 out of 10 substernal chest pressure as if someone was sitting on her chest, diaphoresis, shortness of breath, and had severe hypertension with a blood pressure of 220/110. I assisted with escorting her to the ambulance, at which time an IV was started and she was given sublingual nitroglycerin. An EKG done in the squad which I reviewed showed normal sinus rhythm, no acute changes. She was then transported to [facility] where an EKG was performed which showed normal sinus rhythm, no acute changes. The patient was admitted initially to the floor but then transferred to the ICU as she required a nitroglycerin drip for hypertensive urgency. Her initial troponin was 0.161, and decreased to 0.146. She is still on nitroglycerin drip, and still complains of substernal chest pressure. Her blood pressure is markedly improved however and brought back down to normal. On further history of prior to the heart walk she denies any exertional chest pain, angina or shortness of breath. She has had difficulty with controlling her blood pressure and apparently has a renal mass of some sort which is being evaluated with serial CAT scans. Denies any change to her medication and reports that she is medically compliant. She is status post hysterectomy according to her. [] Past Medical History Allergies/Adverse Reactions: Allergies calcium [From DHEA] Allergy (Verified 04/17/19 19:27) Chest tightness calcium carbonate [From DHEA] Allergy (Verified 04/17/19 19:27) Chest tightness cephalexin [From Keflex] Allergy (Verified 04/17/19 19:27) Rash ketorolac [From Toradol] Allergy (Verified 04/17/19 19:27) Angioedema oxycodone [From Percocet] Allergy (Verified 04/17/19 19:27) Angioedema prasterone (DHEA) [From DHEA] Allergy (Verified 04/17/19 19:27) Chest tightness sumatriptan [From Imitrex] Allergy (Verified 04/17/19 19:27) Swelling azithromycin Adverse Reaction (Verified 04/17/19 19:27) Unknown ondansetron [From Zofran (as hydrochloride)] Adverse Reaction (Verified 04/17/19 19:27) Other Home Medications: Ambulatory Orders Medication Instructions Recorded Amlodipine Besylate [Norvasc] 10 mg PO QHS 01/28/17 Lisinopril [Zestril] 20 mg PO DAILY 01/28/17 Tizanidine HCl [Zanaflex] 4 mg PO TID 01/28/17 Gabapentin [Neurontin] 800 mg PO TIDCM 02/20/17 Clonidine HCl [Catapres] 0.2 mg PO TID 04/17/19 Hydrochlorothiazide [Hctz] 25 mg PO DAILY 04/17/19 Lorazepam [Ativan] 2 mg PO Q4H PRN PRN 04/17/19 Metformin HCl 1,000 mg PO BID 04/17/19 Oxcarbazepine 600 mg PO DAILY 04/17/19 Oxcarbazepine 900 mg PO QHS 04/17/19 Ziprasidone HCl 160 mg PO QHS 04/17/19 Past Medical History (Chronic Problems): Chronic Problems Diabetes (Chronic) 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 Denies: Orthopnea, PND, Peripheral Edema, Palpitations, Lightheadedness, Dizziness, Near Syncope, Syncope Respiratory: Reports: Cough. Denies: Sputum Production, Hemoptysis Gastrointestinal: Denies: Hematemesis, Hematochezia, Melena Genitourinary: Denies: Dysuria, Hematuria Skin: Denies: Rash Subjectve: Patient resting comfortably, still complains of 3 out of 10 chest pain. Objective: Vital Signs Temp Pulse Resp BP Pulse Ox 97.5 F L 66 16 124/73 H 95 04/18/19 08:00 04/18/19 08:00 04/18/19 08:00 04/18/19 08:30 04/18/19 08:00 Oxygen Flow Rate (L/min) 2 Oxygen Delivery Method Nasal Cannula Weight: 215 lb 9.793 oz Body Mass Index (BMI) 37.5 Intake and Output for Last 24 Hours 04/16/19 04/17/19 04/18/19 23:59 23:59 23:59 Intake Total 1149.87 / 1149.87 Output Total 700 / 700 Balance 449.87 / 449.87 General: Awake, Alert, Oriented x 3 HEENT: PERRL, EOMI, Sclera Non Icteric Neck: Supple, Good ROM, No Lymph Node Enlargement Lungs: Clear to auscultation Cardiovascular: Regular Rhythm, Normal S1, Normal S2, No Murmurs, No Rubs, No Gallops Vascular: No Carotid Bruits, Normal Femoral Pulses, Normal Radial Pulses, Normal Dorsalis Pedal Pulse, Normal Posterior Tibial Pulses Abdomen: Bowel Sounds Present, Soft, Non Tender, No HSM, No Organomegaly Extremities: No Cyanosis, No Clubbing, No edema Neurological: No Focal Motor or Sensory Deficit 04/17/19 20:20: WBC 18.5 H, RBC 4.29, Hgb 13.3, Hct 36.5 L, MCV 85.1, MCH 31.0, MCHC 36.4 H, Plt Count 407, MPV 9.7, Immature Gran % (Auto) 1.600 H, Neut % (Auto) 63.4, Lymph % (Auto) 28.1, [place] % (Auto) 5.2, Eos % (Auto) 1.2, Baso % (Auto) 0.5, Absolute Neuts (auto) 11.7 H, Nucleated RBC % 0 04/17/19 20:20: Sodium 132 L, Potassium 2.8 L, Chloride 94 L, Carbon Dioxide 27.0, Anion Gap 11, BUN 10, Creatinine 0.62, Est GFR (MDRD) Af Amer 137, Est GFR (MDRD) Non-Af 113, BUN/Creatinine Ratio 16.2, Glucose 108 H, Calcium 9.0, Troponin I 0.034 04/17/19 20:20: Magnesium 1.6 04/17/19 20:20: B-Natriuretic Peptide 91.6 04/17/19 23:10: Troponin I 0.161 H 04/18/19 00:45: Urine Color Straw, Urine Clarity Clear, Urine pH 7.0, Ur Specific [place] 1.005, Urine Protein Negative, Urine Glucose (UA) Normal, Urine Ketones Negative, Urine Occult Blood Negative, Urine Nitrite Negative, Urine Bilirubin Negative, Urine Urobilinogen Normal, Ur Leukocyte Esterase Negative, Urine RBC 0 SEEN, Urine WBC 0 SEEN 04/18/19 02:32: Sodium 134 L, Potassium 3.4 L, Chloride 99, Carbon Dioxide 27.0, Anion Gap 8, BUN 5 L, Creatinine 0.46 L, Est GFR (MDRD) Af Amer 190, Est GFR (MDRD) Non-Af 157, BUN/Creatinine Ratio 10.8, Glucose 106, Calcium 9.1, Triglycerides 418 H, Cholesterol 182, LDL Cholesterol TNP, VLDL Cholesterol TNP, HDL Cholesterol 37 L 04/18/19 02:32: WBC 18.6 H, RBC 4.64, Hgb 14.1, Hct 39.6, MCV 85.3, MCH 30.4, MCHC 35.6, Plt Count 303, MPV 11.2, Immature Gran % (Auto) 1.200 H, Neut % (Auto) 53.8, Lymph % (Auto) 37.5, [place] % (Auto) 5.7, Eos % (Auto) 1.0, Baso % (Auto) 0.8, Absolute Neuts (auto) 10.0 H, Nucleated RBC % 0 04/18/19 02:32: Troponin I 0.146 H 04/18/19 02:32: Potassium Cancelled, Phosphorus 3.1 04/18/19 02:32: Hemoglobin A1c 6.6 H 04/18/19 03:50: PT 13.6, INR 1.1, APTT 38.7 H Rhythm: EKG: ECHO: Stress Test: Cardiac Cath: PCI: CT Surgery: Holter monitor: EPS: PPM: CXR: Chest CT Scan: Assessment/Plan 1. Acute coronary syndrome: The patient has acute coronary syndrome superimposed on hypertensive urgency requiring IV nitroglycerin drip, and emergent transport from the [employer] [facility] heart walk locally here in [place] to [facility] ER. Her initial troponin was 0.164 and is decreased to 0.146. Patient has a lingering lesion in the mid part of her LAD which is identified on 2 separate catheterizations 3 years apart, the most recent of which was in February 2018. This was evaluated in 2014 with an IFR evaluation with no adenosine augmentation and was found to be normal. Given the patient's constellation of symptoms, risk factors of hypertension, coronary disease, unstable angina, abnormal troponins, and ongoing chest pain despite IV nitroglycerin drip and known coronary disease in her LAD, I recommended that she undergo a repeat left heart catheterization. The patient was given 300 g of Plavix last evening and is yet to receive her morning dose. Patient will undergo a catheterization later on today. Purpose of the cat heterization is to determine if she is had any evidence of deterioration of her mid LAD stenosis or perhaps an ulcerated plaque that may be contributing to her overall symptoms. Patient may require FFR evaluation at that time. In addition it appears the patient reacts well to nitroglycerin, and does not appear to have a headache as a result of her sublingual and IV nitroglycerin. I believe a great medicine for this patient would be Imdur 30 mg p.o. daily titrating up from there to assist with hypertension and coronary vasodilatation. We will start this today and gradually wean her nitroglycerin drip off after we have completed the catheterization. In addition I would switch her from Toprol-XL to Coreg 6.25 mg p.o. twice daily and titrate up from there as well to use the alpha blocking component to assist with afterload reduction and antihypertensive therapy. 2. Hyperlipidemia: Recommend obtaining a fasting lipid profile. 3. Cardiomyopathy: The patient appears to have left ventricular hypertrophy as a result of her long-standing hypertension. Echocardiogram has been ordered and results are pending. 4. Thank you very much for the opportunity to participate in the cardiac care of your patient. Consultation time took place between 9 AM and 9:30 AM. Code Visit Inpatient E&M: 03406 Init Hosp L2
[2019-04-18 09:20] LABS: Internal QC Validated? YES +Cl - CLEAR BKGD; Pregnancy, Urine Negative Negative
--- NOTE | 2019-04-18 09:29 | CASEMGMT ---
RN CM Assessment Presentation: nstemi Intro role of CM and purpose of RN CM assessment to patient. Pt is awake, alert and able to participate in assessment. Demographics, PCP and Pharmacy verified. Pt is disabled, works and she states she is independent at home. No care needs at this time. Heart cath planned for today. PCP: Dr. Angel Carnes Specialists: Dr. Mccarthy, cardiology Preferred Pharmacy: [facility]. Denies difficulty getting prescriptions. Insurance: [employer], [facility] A Prescription Benefit: yes LNOK: Jarvis Raphael, Living Arrangements: Lives in one story home with her . States 4 steps into home, then 6 steps into living area. Handrails present. Pt states she is independent in AD[place] Transportation: drives DME: rollator-does not use HHC: none needed Patient DC goals: Home on discharge DC PLAN: anticipate home with family support. Seb VILLEGAS RN ACM
[2019-04-18] MEDS: Metoprolol(XL)Succ 50 MG Tablet PO (09:31)
[2019-04-18] MEDS: Clopidogrel Bisulfate 75 MG Tablet PO (09:31)
[2019-04-18] MEDS: OXcarbazepine 600 MG Tablet PO (09:44)
[2019-04-18] MEDS: Atorvastatin Calcium 80 MG Tablet PO (09:44)
--- NOTE | 2019-04-18 09:49 | CASEMGMT ---
Insurance Review for [facility] facilities using MMO website and [employer] PPO designation from insurance card. [facility], [facility], [facility], [facility], [place], [place],
[2019-04-18] MEDS: Acetaminophen 325 MG Tablet 650 MG PO (09:59)
[2019-04-18] MEDS: Isosorbide Mononitrate 30 MG Tablet PO (10:01)
[2019-04-18 10:16] LABS: Pathologist Review Reviewed
[2019-04-18] MEDS: 0.9% Normal Saline 1,000 ML 75 ML IV ×2 (11:07→17:59)
[2019-04-18] MEDS: DiphenhydrAMINE 25 MG Capsule 50 MG PO (11:16)
--- NOTE | 2019-04-18 12:49 | CL.I_ITS ---
Patient Name: CHANTELLE ACEVES Study Date: 04/18/2019 Performing: Melvin Mccarthy MD Ht: 64.96 inches 165 cm : 1975 Wt: 216.05 lbs 98 kg Age: 44 Gender: female BSA: 2.04 Amended PROCEDURE(S) PERFORMED [id number], CORONARY OR GRAFT, INITIAL VESSEL CLINICAL PROFILE AND CO-MORBIDITIES Patient presents with NSTEMI for urgent cardiac cath Indications: ACS <= 24 hrs, Worsening Angina, Stable Known CAD Heart Failure: None Stress/Imaging Stress/Image Study Performed: No Angina Classification Anginal Classification w/in 2 Weeks: CCS III CAD Presentations: Unstable angina. Non-STEMI. Symptom onset Date/Time: 04/18/2019 Time Not Avail able Other: HTN urgency Comorbidities/Risk Factors: Hypertension Dyslipidemia Prior [place] CONCLUSIONS Non obstructive coronary arteries Normal LV size, wall motion,and systolic function LVEF: by LV gram 65 % Elevated Left Ventricular End Diastolic Pressure FFR negative for combined mid and distal LAD with FFR=0.97; (FFR=0.86 with pt coughing and most likel y not accurate). RECOMMENDATIONS Staged for FFR Management as per referring Residential Sales Representative Highly recommend quitting all tobacco products Follow up with primary industrial electrician Risk factor modification ASA Indefinitley Plavix for at least 12 months Routine post interventional care Refer for Outpatient Cardiac Rehab Manual sheath removal per protocol Follow up with Dr. Mccarthy d/c plavix, start coreg and imdur, f/u with Dr Mccarthy Successful Mynx Control closure of RFA. DESCRIPTION OF PROCEDURE The patient arrived to the procedure lab. The risks and benefits of the procedure as well as a full d escription of our services here and lack of surgical backup were fully explained to the patient and/o r their significant other prior to the catheterization. The Timeout was completed, verifying the maribel ect patient and procedure. The patient's procedural site was prepped and draped in the usual fashion. Local anesthetic was given subcutaneously to right groin region with Lidocaine 2%. Using a modified Seldinger technique, arterial access was obtained via the right femoral artery, a 4Fr sheath was inse rted. Left Coronary Artery selective angiography was performed in multiple views using a 4 Fr. JL5 c atheter. Right Coronary Artery selective angiography was then performed in multiple views using a 4 F r. 3DRC catheter. Left Ventriculography was performed in LARIOS projection using a 4 Fr. Pigtail cathete r. LV to AO pullback pressures were then recorded Arterial sheath was exchanged for a 6 Fr Sheath. EBU 3.5 Guide catheter was inserted and engaged into the LCA. The FFR/iFR wire was inserted. Adenosine was then given per protocol. Pressures and FFR /iFR were then recorded. FFR Ratio Baseline: 0.90 FFR Ratio post Adenosine: 0.86 The FFR/iFR wire was then removed. Contrast was injected through the sheath and the Right Iliac and Femoral artery were a ssessed for possible closure device. The arterial sheath was pulled and a Mynx closure device was de ployed for hemostasis CORONARY ANGIOGRAPHY DOMINANCE: Right Dominant LEFT HEART ASSESSMENT Left Ventricular Ejection Fraction: by LV Gram 65 % Normal Left Ventricular systolic function LVEDP: 19 mmHg Elevated Left Ventricular End Diastolic Pressure Normal LV wall motion LEFT MAIN: Angiographically normal LEFT ANTERIOR DESCENDING ARTERY: MID LAD: Mild luminal irregularities less than 30% DISTAL LAD: Moderate luminal irregularities up to 50% CIRCUMFLEX ARTERY: Angiographically normal RIGHT CORONARY ARTERY: Angiographically normal INTERVENTION INFORMATION LESION SITE: LAD (Distal) Lesion Complexity: High/C Pre Stenosis: 50 % Pre intervention STEVE flow: 3 PROCEDURE: FFR Post Stenosis: 50 % Post intervention STEVE flow: 3 Lesion Devices: [employer] Devices ( Formerly [place]) Coronary FFR Wire Adaptlytronic 6 Fr EBU3.5 100cm Guide Catheter COMPLICATIONS No Complications PROCEDURE MEDICATIONS Versed 1 mg IV Oxygen: 2 L/min via nasal cannula Adenosine drip for FFR 27.2 ml IV @ 04/18/2019 12:43:37 Heparin 6000 unit(s) IV 04/18/2019 12:19:19 Nitro 200 mcg IC 04/18/2019 12:11:14 Nitro 200 mcg IC 04/18/2019 12:11:14 Nitro 300 mcg IC 04/18/2019 12:27:09 IV Bolus: .9 NaCl 250ml total 04/18/2019 12:30:36 SUMMARY OF HEMODYNAMIC DATA Time AIR REST ECG 11:46:17 AO 146/79 (104) SA 12:09:03 LV 152/-3, 15 12:17:39 LV 157/-5, 19 12:17:46 LVp 159/-7, 15 12:17:50 [facility] 153/79 (108) 12:17:55 Signed By Melvin Mccarthy MD On 04/18/2019 12:48:44 Melvin Mccarthy MD
[2019-04-18 12:51] LABS: ACT Activated Clotting Time 202 sec (74-137)
--- NOTE | 2019-04-18 13:06 | PCM.DC.SUM ---
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 No acute cardiopulmonary disease process is seen. Electronically Signed: Markus Wen MD at 19:53 EDT , Service support , Chest CTA 04/18/19 02:49 IMPRESSION: No demonstrated pulmonary embolism or arterial dissection. Bilateral patchy pneumonia. There is a 1.7 cm nodule with central calcification is seen in the posterior segment of right lung upper lobe is most likely a granuloma. Follow-up in 6 month would be helpful to ensure stability. Electronically Signed: Mata Bang, at 5:09 EDT Tel , Service support , Summary of Care Provided: T Patient is a 44-year-old lady admitted with chest pain patient was found to have slightly elevated troponin. Was also found to have markedly elevated blood pressure started on nitroglycerin drip and subsequently transferred to the intensive care unit. 1. Acute non-STEMI secondary to demand ischemia from hypertensive heart disease. ~Patient admitted to monitored bed managed per protocol with antiplatelet therapy, therapeutic Lovenox, beta-blockers and statin therapy. Echo was ordered and consultation placed to cardiology. Patient was seen by Dr. Mccarthy who did perform left heart catheterization on 04/18/2019. Patient left heart cath did not demonstrate any hemodynamically significant obstructive lesions. 2. Acute hypertensive emergency ~Presented with markedly elevated blood pressure. Patient and had evidence of endorgan damage as demonstrated above. Patient was started on nitroglycerin drip admitted to the intensive care unit titrated to keep blood pressure less than 160 Adjustment were made to patient blood pressure medications prior to discharge 3. Dyslipidemia ~Patient not previously on any statin therapy was started on Lipitor 80 mg daily 4. Hypokalemia ~Corrected per protocol 5. Hyponatremia ~Improved with rehydration 6. Schizoaffective disorder Patient is on Geodon and Trileptal plan is to resume home meds once his meds have been reconciled 7. Tobacco dependence ~counseled on cessation, offered nicotine patch for tobacco cravings 8. Obesity ~ with BMI of 35.9 weight loss advised 9. DVT prophylaxis ~ on enoxaparin Patient Problems: Active and Suspected Problems Demand ischemia (Acute) Objective: GENERAL: cooperative HEENT: Atraumatic; EYES; Anicteric, NECK; supple, normal thyroid, RESPIRATORY: Diminished to auscultation CARDIOVASCULAR: Regular S1 S2, GI: soft, non-tender, normoactive bowel sounds, : No Renal angle tenderness; EXTREMITIES: No edema, no clubbing, SKIN: No Rash PSYCH; Normal affect - Physical Exam Vital Signs Temp Pulse Resp BP Pulse Ox 97.8 F 70 17 152/80 H 93 04/18/19 11:00 04/18/19 12:00 04/18/19 11:00 04/18/19 11:00 04/18/19 11:00 Oxygen Flow Rate (L/min) 2 Oxygen Delivery Method Room Air Weight: 97.8 kg Body Mass Index (BMI) 37.5 Intake and Output for Last 24 Hours 04/16/19 04/17/19 04/18/19 23:59 23:59 23:59 Intake Total 1606.12 / 1606.12 Output Total 1550 / 1550 Balance 56.12 / 56.12 Microbiology Past 72 Hours 04/17/19 22:50 Respiratory Panel (PCR) - Final Mucosa - Nasopharyngeal Laboratory Tests Past 24 Hrs 04/17/19 04/17/19 04/17/19 20:20 20:20 20:20 WBC 18.5 H RBC 4.29 Hgb 13.3 Hct 36.5 L MCV 85.1 MCH 31.0 MCHC 36.4 H RDW Std Deviation 38.9 RDW Coeff of Caden 12.6 Plt Count 407 MPV 9.7 Immature Gran % (Auto) 1.600 H Neut % (Auto) 63.4 Lymph % (Auto) 28.1 Falls % (Auto) 5.2 Eos % (Auto) 1.2 Baso % (Auto) 0.5 Absolute Neuts (auto) 11.7 H Absolute Lymphs (auto) 5.21 H Nucleated RBC % 0 Differential Comment SEE COMMENT Diff Path Review Reviewed Platelet Estimate ADEQUATE RBC Morphology NORM C+C PT INR APTT Activated Clotting Time Sodium 132 L Potassium 2.8 L Chloride 94 L Carbon Dioxide 27.0 Anion Gap 11 BUN 10 Creatinine 0.62 Estim Creat Clear Calc 106.36 Est GFR (MDRD) Af Amer 137 Est GFR (MDRD) Non-Af 113 BUN/Creatinine Ratio 16.2 Glucose 108 H Hemoglobin A1c Calcium 9.0 Phosphorus Magnesium 1.6 Troponin I 0.034 B-Natriuretic Peptide Triglycerides Cholesterol LDL Cholesterol VLDL Cholesterol HDL Cholesterol TSH Urine Color Urine Clarity Urine pH Ur Specific [place] Urine Protein Urine Glucose (UA) Urine Ketones Urine Occult Blood Urine Nitrite Urine Bilirubin Urine Urobilinogen Ur Leukocyte Esterase Urine RBC Urine WBC Ur Squamous Epith Cells Urine Bacteria Urine Mucus Urine Test 04/17/19 04/17/19 04/18/19 20:20 23:10 00:45 WBC RBC Hgb Hct MCV MCH MCHC RDW Std Deviation RDW Coeff of Caden Plt Count MPV Immature Gran % (Auto) Neut % (Auto) Lymph % (Auto) Falls % (Auto) Eos % (Auto) Baso % (Auto) Absolute Neuts (auto) Absolute Lymphs (auto) Nucleated RBC % Differential Comment Diff Path Review Platelet Estimate RBC Morphology PT INR APTT Activated Clotting Time Sodium Potassium Chloride Carbon Dioxide Anion Gap BUN Creatinine Estim Creat Clear Calc Est GFR (MDRD) Af Amer Est GFR (MDRD) Non-Af BUN/Creatinine Ratio Glucose Hemoglobin A1c Calcium Phosphorus Magnesium Troponin I 0.161 H B-Natriuretic Peptide 91.6 Triglycerides Cholesterol LDL Cholesterol VLDL Cholesterol HDL Cholesterol TSH Urine Color Straw Urine Clarity Clear Urine pH 7.0 Ur Specific [place] 1.005 Urine Protein Negative Urine Glucose (UA) Normal Urine Ketones Negative Urine Occult Blood Negative Urine Nitrite Negative Urine Bilirubin Negative Urine Urobilinogen Normal Ur Leukocyte Esterase Negative Urine RBC 0 SEEN Urine WBC 0 SEEN Ur Squamous Epith Cells 0-5 SEEN Urine Bacteria RARE Urine Mucus 0 SEEN Urine Test 04/18/19 04/18/19 04/18/19 02:00 02:32 02:32 WBC 18.6 H RBC 4.64 Hgb 14.1 Hct 39.6 MCV 85.3 MCH 30.4 MCHC 35.6 RDW Std Deviation 38.5 RDW Coeff of Caden 12.6 Plt Count 303 MPV 11.2 Immature Gran % (Auto) 1.200 H Neut % (Auto) 53.8 Lymph % (Auto) 37.5 Falls % (Auto) 5.7 Eos % (Auto) 1.0 Baso % (Auto) 0.8 Absolute Neuts (auto) 10.0 H Absolute Lymphs (auto) 6.97 H Nucleated RBC % 0 Differential Comment Diff Path Review Platelet Estimate RBC Morphology PT INR APTT Activated Clotting Time Sodium 134 L Potassium 3.4 L Chloride 99 Carbon Dioxide 27.0 Anion Gap 8 BUN 5 L Creatinine 0.46 L Estim Creat Clear Calc 137.58 Est GFR (MDRD) Af Amer 190 Est GFR (MDRD) Non-Af 157 BUN/Creatinine Ratio 10.8 Glucose 106 Hemoglobin A1c Calcium 9.1 Phosphorus Magnesium Troponin I B-Natriuretic Peptide Triglycerides 418 H Cholesterol 182 LDL Cholesterol TNP VLDL Cholesterol TNP HDL Cholesterol 37 L TSH 3.19 Urine Color Urine Clarity Urine pH Ur Specific [place] Urine Protein Urine Glucose (UA) Urine Ketones Urine Occult Blood Urine Nitrite Urine Bilirubin Urine Urobilinogen Ur Leukocyte Esterase Urine RBC Urine WBC Ur Squamous Epith Cells Urine Bacteria Urine Mucus Urine Test Negative 04/18/19 04/18/19 04/18/19 02:32 02:32 02:32 WBC RBC Hgb Hct MCV MCH MCHC RDW Std Deviation RDW Coeff of Caden Plt Count MPV Immature Gran % (Auto) Neut % (Auto) Lymph % (Auto) Falls % (Auto) Eos % (Auto) Baso % (Auto) Absolute Neuts (auto) Absolute Lymphs (auto) Nucleated RBC % Differential Comment Diff Path Review Platelet Estimate RBC Morphology PT INR APTT Activated Clotting Time Sodium Potassium Cancelled Chloride Carbon Dioxide Anion Gap BUN Creatinine Estim Creat Clear Calc Est GFR (MDRD) Af Amer Est GFR (MDRD) Non-Af BUN/Creatinine Ratio Glucose Hemoglobin A1c 6.6 H Calcium Phosphorus 3.1 Magnesium Troponin I 0.146 H B-Natriuretic Peptide Triglycerides Cholesterol LDL Cholesterol VLDL Cholesterol HDL Cholesterol TSH Urine Color Urine Clarity Urine pH Ur Specific [place] Urine Protein Urine Glucose (UA) Urine Ketones Urine Occult Blood Urine Nitrite Urine Bilirubin Urine Urobilinogen Ur Leukocyte Esterase Urine RBC Urine WBC Ur Squamous Epith Cells Urine Bacteria Urine Mucus Urine Test 10/11/19 10/11/19 03:50 12:31 WBC RBC Hgb Hct MCV MCH MCHC RDW Std Deviation RDW Coeff of Caden Plt Count MPV Immature Gran % (Auto) Neut % (Auto) Lymph % (Auto) Falls % (Auto) Eos % (Auto) Baso % (Auto) Absolute Neuts (auto) Absolute Lymphs (auto) Nucleated RBC % Differential Comment Diff Path Review Platelet Estimate RBC Morphology PT 13.6 INR 1.1 APTT 38.7 H Activated Clotting Time 202 H Sodium Potassium Chloride Carbon Dioxide Anion Gap BUN Creatinine Estim Creat Clear Calc Est GFR (MDRD) Af Amer Est GFR (MDRD) Non-Af BUN/Creatinine Ratio Glucose Hemoglobin A1c Calcium Phosphorus Magnesium Troponin I B-Natriuretic Peptide Triglycerides Cholesterol LDL Cholesterol VLDL Cholesterol HDL Cholesterol TSH Urine Color Urine Clarity Urine pH Ur Specific [place] Urine Protein Urine Glucose (UA) Urine Ketones Urine Occult Blood Urine Nitrite Urine Bilirubin Urine Urobilinogen Ur Leukocyte Esterase Urine RBC Urine WBC Ur Squamous Epith Cells Urine Bacteria Urine Mucus Urine Test POC Glucose 04/18/19 04/18/19 06:24 01:53 POC Glucose 139 H 107 Discharge Diet: Low fat/ Low Cholesterol Home Medications: Medications to take at Discharge Amlodipine Besylate [Norvasc] 10 mg PO QHS 01/28/17 Lisinopril [Zestril] 20 mg PO DAILY 01/28/17 Tizanidine HCl [Zanaflex] 4 mg PO TID 01/28/17 Gabapentin [Neurontin] 800 mg PO TIDCM 02/20/17 Clonidine HCl [Catapres] 0.2 mg PO TID 04/17/19 Hydrochlorothiazide [Hctz] 25 mg PO DAILY 04/17/19 Lorazepam [Ativan] 2 mg PO Q4H PRN PRN 04/17/19 Metformin HCl 1,000 mg PO BID 04/17/19 Oxcarbazepine 600 mg PO DAILY 04/17/19 Oxcarbazepine 900 mg PO QHS 04/17/19 Ziprasidone HCl 160 mg PO QHS 04/17/19 Atorvastatin Calcium [Lipitor] 80 mg PO DAILY #60 tab 04/18/19 Carvedilol [Coreg (Beta Radha)] 6.25 mg PO BID #120 tab 04/18/19 hydrALAZINE [Apresoline] 50 mg PO TID #180 tab 04/18/19 Following Prescrptions Were Given to Patient: hydrALAZINE [Apresoline] 50 mg PO TID #180 tab Transmission Status: Received by [id number] [facility] Carvedilol [Coreg (Beta Radha)] 6.25 mg PO BID #120 tab Transmission Status: Received by [id number] Atorvastatin Calcium [Lipitor] 80 mg PO DAILY #60 tab Transmission Status: Received by [employer] [id number] [facility] Other Amb Orders: Phase II, Outpatient Cardiac Rehab Location: None Selected Primary Care Physician: [facility] Doctor,Out of [NON-STAFF] - Patient Instructions: CHEST PAIN, NonCardiac Minutes spent on discharge:: 45 Patient Condition:: Stable Medical Necessity - Tobacco Use Smoking Status: Current every day smoker Tobacco Use: Cigarettes Meaningful Use Info Meaningful Use Diagnoses (Choose all that apply): None applicable Code Visit Inpatient E&M: 89579 Disch Hosp
--- NOTE | 2019-04-18 13:06 | PCM.DC ---
- Discharge Diagnoses Current Active Problems: Current Active and Chronic Problems Chest pain (Acute) Coronary artery disease (Acute) Non-STEMI (non-ST elevated myocardial infarction) (Acute) You will use the following diet at home:: Calorie/Carbohydrate Controlled (specify 1200, 1400, etc), Cardiac - 1800 Your food should be the consistency of: Regular Instructions: CHEST PAIN, NonCardiac Allergies/Adverse Reactions: Allergies calcium [From DHEA] Allergy (Verified 04/17/19 19:27) Chest tightness calcium carbonate [From DHEA] Allergy (Verified 04/17/19 19:27) Chest tightness cephalexin [From Keflex] Allergy (Verified 04/17/19 19:27) Rash ketorolac [From Toradol] Allergy (Verified 04/17/19 19:27) Angioedema oxycodone [From Percocet] Allergy (Verified 04/17/19 19:27) Angioedema prasterone (DHEA) [From DHEA] Allergy (Verified 04/17/19 19:27) Chest tightness sumatriptan [From Imitrex] Allergy (Verified 04/17/19 19:27) Swelling azithromycin Adverse Reaction (Verified 04/17/19 19:27) Unknown ondansetron [From Zofran (as hydrochloride)] Adverse Reaction (Verified 04/17/19 19:27) Other Medications to take at Discharge Amlodipine Besylate [Norvasc] 10 mg PO QHS 01/28/17 Lisinopril [Zestril] 20 mg PO DAILY 01/28/17 Tizanidine HCl [Zanaflex] 4 mg PO TID 01/28/17 Gabapentin [Neurontin] 800 mg PO TIDCM 02/20/17 Clonidine HCl [Catapres] 0.2 mg PO TID 04/17/19 Hydrochlorothiazide [Hctz] 25 mg PO DAILY 04/17/19 Lorazepam [Ativan] 2 mg PO Q4H PRN PRN 04/17/19 Metformin HCl 1,000 mg PO BID 04/17/19 Oxcarbazepine 600 mg PO DAILY 04/17/19 Oxcarbazepine 900 mg PO QHS 04/17/19 Ziprasidone HCl 160 mg PO QHS 04/17/19 Atorvastatin Calcium [Lipitor] 80 mg PO DAILY #60 tab 04/18/19 Carvedilol [Coreg (Beta Radha)] 6.25 mg PO BID #120 tab 04/18/19 hydrALAZINE [Apresoline] 50 mg PO TID #180 tab 04/18/19 The following prescriptions were given: hydrALAZINE [Apresoline] 50 mg PO TID #180 tab Transmission Status: Pending to [facility] [id number] [facility] Carvedilol [Coreg (Beta Radha)] 6.25 mg PO BID #120 tab Transmission Status: Pending to [facility] [id number] [facility] Atorvastatin Calcium [Lipitor] 80 mg PO DAILY #60 tab Transmission Status: [facility] Primary Care Physician: [facility] Doctor,Out of [NON-STAFF] - Please follow up with your Primary Care Physician in: in 5-7 days for Blood pressure check Test Results: Test results from this visit will be discussed in further detail at your follow-up appointment, if applicable. Proposed Discharge Date: 04/18/19
[2019-04-18] MEDS: 0.9% Normal Saline 1,000 ML 150 ML IV (13:36)
[2019-04-18] MEDS: clonazePAM 1 MG Tablet PO (13:36)
[2019-04-18 16:40] LABS: Bedside Glucose 121 mg/dL (70-110)
[2019-04-18] MEDS: LORazepam 1 MG Tablet 2 MG PO ×2 (17:06→23:13)
[2019-04-18] MEDS: lamoTRIgine 100 MG Tablet 200 MG PO (21:29)
[2019-04-18] MEDS: Carvedilol 6.25 MG Tablet PO (21:29)
[2019-04-18] MEDS: OXcarbazepine 300 MG Tablet 900 MG PO (21:31)
[2019-04-18 21:45] LABS: Bedside Glucose 137 mg/dL (70-110)
[2019-04-19] MEDS: Morphine 2 MG/ML Syringe IV ×2 (01:55→05:26)
[2019-04-19 03:00] VITALS: PULSE 67
[2019-04-19 03:30] VITALS: BP 142/91; PULSE 76; RESP 18; TEMP 36.6; O2SAT 94
[2019-04-19] MEDS: LORazepam 1 MG Tablet 2 MG PO ×2 (03:35→08:23)
[2019-04-19 06:13] VITALS: PULSE 76
[2019-04-19] MEDS: cloNIDine HCl 0.2 MG Tablet PO (06:13)
[2019-04-19] MEDS: hydrALAZINE 50 MG Tablet 100 MG PO (06:13)
[2019-04-19] MEDS: clonazePAM 1 MG Tablet PO (06:13)
[2019-04-19] MEDS: 0.9% Normal Saline 1,000 ML 75 ML IV (06:16)
[2019-04-19 06:23] LABS: Absolute Lymphocyte Count 5.82 X10^3/uL (0.83-4.51); Absolute Neutrophil Count 6.3 X10^3/uL (2.0-7.7); Basophil# 0.06 X10^3/uL; Basophil% 0.4 % (0-1); Eosinophil# 0.19 X10^3/uL; Eosinophils% 1.4 % (0-5); Hematocrit 32.8 % (37-47); Lymphocyte # 5.82 X10^3/ul (4.0); Lymphocyte % 43.3 % (19-41); Mean Corp Hgb Conc 33.5 g/dL (32-36); Mean Corpuscular Hgb 29.8 pg (27.0-32.0); Mean Corpuscular Volume 88.9 fL (81-99); Mean Platelet Vol. 9.3 fl (6.2-12.0); Monocyte# 0.91 X10^3/uL; Monocyte% 6.8 % (0-10); NRBC Flagged by Analyzer 0 % (0-5); Neutrophil # 6.29 X10^3/uL (2.7-7.7); Neutrophil % 46.8 % (47-70); POSITIVE DIFFERENTIAL YES; POSITIVE MORPHOLOGY YES; Platelet Count 376 K/mm3 (150-450); RBC Distribution Width CV 13.5 % (11.6-14.6); RBC Distribution Width SD 43.8 fl (35.1-43.9); Red Blood Count 3.69 M/mm3 (4.2-5.4); White Blood Count 13.5 K/mm3 (4.4-11.0)
[2019-04-19 06:29] LABS: Differential Indicated SCAN CRITERIA MET
[2019-04-19 06:46] LABS: Bedside Glucose 103 mg/dL (70-110)
[2019-04-19 06:50] LABS: AST(SGOT) 18 U/L (15-37); Alanine Aminotransfer ALT/SGPT 28 U/L (13-56); Albumin, Serum 3.1 g/dL (3.2-5.0); Alkaline Phosphatase 71 U/L (45-117); Anion Gap 7 (5-15); BUN 9 mg/dL (7-18); BUN/Creat Ratio 16.7 RATIO (10-20); Calcium,Total 8.1 mg/dL (8.5-10.1); Chloride 109 mmol/L (98-107); Creatinine, Serum 0.54 mg/dL (0.55-1.02); EST Glomerular Filtration Rate 132 mL/min (>60); Est Glom Filt Rate - Afr Amer 160 mL/min (>60); Estimated Creatinine Clearance 117.19 ml/min; Glucose 106 mg/dL (74-106); Magnesium 2.2 mg/dL (1.6-2.6); Potassium 3.8 mmol/L (3.5-5.1); Protein, Total 6.1 g/dL (6.4-8.2); Sodium Level 141 mmol/L (136-145)
[2019-04-19 07:04] VITALS: PULSE 70
[2019-04-19 08:03] VITALS: O2SAT 94
[2019-04-19] MEDS: Gabapentin 600 MG Tablet PO (08:16)
[2019-04-19] MEDS: Acetaminophen 325 MG Tablet 650 MG PO (08:23)
[2019-04-19] MEDS: Aspirin E.C. 81 MG Tablet PO (08:24)
[2019-04-19 08:49] VITALS: BP 160/89; PULSE 70; RESP 18; TEMP 36.4; O2SAT 97
--- NOTE | 2019-04-19 10:00 | EKG12_ITS ---
Test Reason : Blood Pressure : / mmHG Vent. Rate : 071 BPM Atrial Rate : 071 BPM P-R Int : 204 ms QRS Dur : 110 ms QT Int : 472 ms P-R-T Axes : 036 045 085 degrees QTc Int : 512 ms Normal sinus rhythm Prolonged QT Abnormal ECG When compared with ECG of 18-APR-2019 04:03, MANUAL COMPARISON REQUIRED, DATA IS UNCONFIRMED Confirmed by KATIE SOMERS ([id number]), editor greeting card DERIK LAM ([id number]) on 04/23/2019 10:42:24 AM Referred By: Dillon Cole Confirmed By:KATIE SOMERS
--- NOTE | 2019-04-19 13:56 | PCA ---
Housekeeping found patients dentures in room after discharge. Spoke with Gladys on the phone, notified her that we had her dentures at the [facility] on the unit and she stated that they would be in to get them eventually.
== END 2019-04-19 08:57 | disposition home or self-care (01) | DRG 281 ==
LOC: ED 21:46 → PCU 21:47 → ICU 04-18 02:47 → PCU 04-18 17:45
PROVIDERS: Internal Medicine Cardiovascular Disease; Admitting Provider Internal Medicine; Emergency Provider Emergency Medicine; Family Provider Family Medicine; PCP Family Medicine; Referring Provider Internal Medicine; Visit Provider Internal Medicine
DX: I21.A1 Myocardial infarction type 2 (principal); I16.1 Hypertensive emergency; E87.1 Hypo-osmolality and hyponatremia; M47.816 Spondylosis without myelopathy or radiculopathy, lumbar region; E11.9 Type 2 diabetes mellitus without complications; E78.5 Hyperlipidemia, unspecified; E87.6 Hypokalemia; F25.9 Schizoaffective disorder, unspecified; E66.9 Obesity, unspecified; E87.8 Other disorders of electrolyte and fluid balance, not elsewhere classified; F17.210 Nicotine dependence, cigarettes, uncomplicated; I50.9 Heart failure, unspecified; I11.0 Hypertensive heart disease with heart failure; Z68.35 Body mass index [BMI] 35.0-35.9, adult; I25.10 Atherosclerotic heart disease of native coronary artery without angina pectoris; G89.29 Other chronic pain; M54.9 Dorsalgia, unspecified
CPT/HCPCS: 36415; 71045; 71275; 80048; 80053; 80061; 81001; 81025; 82962; 83036; 83735; 83880; 84100; 84443; 84484; 85025; 85347; 85610; 85730; 87086; 87088; 87633; 93005; 93306; 93458; 93571; 99152; 99153; 99285; C1760; J0153; J7030; Q9957; Q9967; A4216; C1769; C1894; C8929

== ENCOUNTER 2020-04-30 09:44 | Outpatient (RCR) | payer OTHER, SELFPAY ==
[2019-04-17 22:54] VITALS: BMI 37.5
[2020-04-30 10:00] LABS: Hemoglobin 11.7 g/dL (12.0-15.0); Mean Corp Hgb Conc 33.4 g/dL (32-36); Mean Corpuscular Hgb 30.5 pg (27.0-32.0); Mean Corpuscular Volume 91.4 fL (81-99); Mean Platelet Vol. 10.8 fl (6.2-12.0); Platelet Count 303 K/mm3 (150-450); RBC Distribution Width CV 14.1 % (11.6-14.6); RBC Distribution Width SD 47.3 fl (35.1-43.9); Red Blood Count 3.83 M/mm3 (4.2-5.4); White Blood Count 13.9 K/mm3 (4.4-11.0)
[2020-04-30 10:07] LABS: AST(SGOT) 12 U/L (15-37); Alanine Aminotransfer ALT/SGPT 23 U/L (13-56); Albumin, Serum 3.3 g/dL (3.2-5.0); Alkaline Phosphatase 47 U/L (45-117); Anion Gap 5 (5-15); BUN 16 mg/dL (7-18); BUN/Creat Ratio 17.8 RATIO (10-20); Bilirubin, Direct 0.07 mg/dL (0.00-0.30); Calcium,Total 9.1 mg/dL (8.5-10.1); Chloride 108 mmol/L (98-107); EST Glomerular Filtration Rate 73 mL/min (>60); Est Glom Filt Rate - Afr Amer 88 mL/min (>60); Glucose 123 mg/dL (74-106); Magnesium 1.8 mg/dL (1.6-2.6); Phosphorus 3.4 mg/dL (2.5-4.9); Potassium 3.7 mmol/L (3.5-5.1); Protein, Total 6.3 g/dL (6.4-8.2); Sodium Level 138 mmol/L (136-145)
== END 2020-04-30 18:00 | disposition home or self-care (01) ==
LOC: HHLAB 09:44
PROVIDERS: PCP Family Medicine; Referring Provider Student in an Organized Health Care Education/Training Program; Visit Provider Student in an Organized Health Care Education/Training Program
DX: I10 Essential (primary) hypertension (principal); E83.42 Hypomagnesemia
CPT/HCPCS: 80048; 80076; 83735; 84100; 85027

== ENCOUNTER → 2020-07-29 16:34 | Outpatient (CLI) | payer OTHER, SELFPAY ==
[2019-04-17 22:54] VITALS: BMI 37.5
[2020-07-29 18:13] LABS: Anion Gap 7 (5-15); BUN 11 mg/dL (7-18); BUN/Creat Ratio 16.7 RATIO (10-20); Calcium,Total 9.6 mg/dL (8.5-10.1); Chloride 103 mmol/L (98-107); Creatinine, Serum 0.66 mg/dL (0.55-1.02); EST Glomerular Filtration Rate 104 mL/min (>60); Est Glom Filt Rate - Afr Amer 126 mL/min (>60); Glucose 117 mg/dL (74-106); Potassium 4.3 mmol/L (3.5-5.1); Sodium Level 135 mmol/L (136-145)
== END ==
PROVIDERS: PCP Family Medicine; Referring Provider Student in an Organized Health Care Education/Training Program; Visit Provider Student in an Organized Health Care Education/Training Program
DX: E87.6 Hypokalemia (principal)
CPT/HCPCS: 80048

== ENCOUNTER 2020-09-28 15:39 | Outpatient (RCR) | payer OTHER, SELFPAY ==
[2019-04-17 22:54] VITALS: BMI 37.5
[2020-09-28 16:16] LABS: Color, Urine Yellow (Yellow); Glucose, Dipstick Normal (Normal); Ketone-Dipstick Negative (Negative); Leukocyte Esterase-Dipstick Negative /ul (Negative); Nitrite-Dipstick Negative (Negative); Occult Blood-Urine Negative /ul (Negative); Protein-Dipstick Negative (Negative); Urine Bilirubin Dipstick Negative (Negative); Urine Clarity Clear (Clear); Urine Urobilinogen Normal (Normal)
== END 2020-09-28 18:00 | disposition home or self-care (01) ==
LOC: HHLAB 15:39
PROVIDERS: PCP Family Medicine; Referring Provider Student in an Organized Health Care Education/Training Program; Visit Provider Student in an Organized Health Care Education/Training Program
DX: G47.61 Periodic limb movement disorder (principal); G81.04 Flaccid hemiplegia affecting left nondominant side; T43.221D Poisoning by selective serotonin reuptake inhibitors, accidental (unintentional), subsequent encounter
CPT/HCPCS: 81002; 87086; 87088

== ENCOUNTER 2020-10-13 15:15 | Outpatient (RCR) | payer OTHER, SELFPAY ==
[2019-04-17 22:54] VITALS: BMI 37.5
== END 2020-10-13 23:59 | disposition home or self-care (01) ==
LOC: HHLAB 15:15
PROVIDERS: PCP Family Medicine; Referring Provider Student in an Organized Health Care Education/Training Program; Visit Provider Student in an Organized Health Care Education/Training Program
DX: R30.0 Dysuria (principal)
CPT/HCPCS: 87086

== ENCOUNTER 2022-05-22 23:25 | Emergency (ER) | payer OTHER, SELFPAY ==
[2022-05-22 23:26] VITALS: BP 187/106; PULSE 91; RESP 16; TEMP 36.7; O2SAT 95; BMI 41.5
[2022-05-23] VITALS (12 sets, daily range): BP systolic 147–167; BP diastolic 85–92; PULSE 84–85; RESP 14–18; TEMP 36.2; O2SAT 20–95
--- NOTE | 2022-05-23 00:04 | EX.ED.VIS.PS ---
HPI HPI - Psych History of Present Illness Chief Complaint: Suicidal Detail of Chief Complaint: History of bipolar and schizophrenia. Informant: patient Onset/Context/Timing Onset: Weeks Context: Gradual Onset Timing: Continuous Current Severity: Moderate Maximum Severity: Moderate Associated Symptoms Associated Symptoms - Psych: Positive for Depressed, Change in sleeping, Suicidal Thoughts, Visual Hallucinations and Auditory Hallucinations Specific plan (suicidal thought): Overdose Narrative Narrative: 47-year-old female history of anxiety, schizophrenia, bipolar, diabetes, prior drug abuse and hypertension. States that she is suicidal. Last 2 weeks states she is having both auditory and visual hallucinations. She sees the counseling center. Tonight she called the suicide hotline and the police and a squad brought her into the emergency department. She denies any recent illness. She denies any recent attempt. She has had symptoms before in the past and has been hospitalized for psychiatric issues in the last year. Prior similar symptoms: Yes Recent Illness[facility]: [facility] Medical History (Updated 05/23/22 @ 00:[address] Nain Garcia MD) Anxiety Benign essential HTN Chest pain Demand ischemia Depression Diabetes mellitus, type II History of drug dependence/abuse History of non-ST elevation myocardial infarction (NSTEMI) (04/18/19) Hypertensive urgency, malignant Near syncope (12/04/18) Nicotine use disorder Schizophrenia Home Medications tizanidine 4 mg tablet 4 mg PO TID 01/28/17 [History Last Taken 04/17/19 12:00] hydrochlorothiazide 25 mg tablet 25 mg PO DAILY 04/17/19 [History Last Taken 04/17/19 06:00] metformin 1,000 mg tablet 1,000 mg PO BID 04/17/19 [History Last Taken 04/17/19 08:00] atorvastatin 80 mg tablet 80 mg PO DAILY #60 tabs 04/18/19 [Rx Last Taken Unknown] carvedilol 6.25 mg tablet 6.25 mg PO BID #120 tabs 04/18/19 [Rx Last Taken Unknown] amitriptyline 50 mg tablet 50 mg PO QHS 05/14/19 [History Last Taken Unknown] amlodipine 5 mg tablet 5 mg PO DAILY 05/14/19 [History Last Taken Unknown] aspirin 81 mg tablet,delayed release (Adult Aspirin Regimen) 81 mg PO DAILY 05/14/19 [History Last Taken Unknown] clonidine HCl 0.1 mg tablet 0.1 mg PO TID 05/14/19 [History Last Taken Unknown] gabapentin 800 mg tablet 800 mg PO TID 05/14/19 [History Last Taken Unknown] hydralazine 100 mg tablet 100 mg PO TID 05/14/19 [History Last Taken Unknown] lidocaine 5 % topical patch 1 patch topical DAILY 05/14/19 [History Last Taken Unknown] lisinopril 40 mg tablet 40 mg PO DAILY 05/14/19 [History Last Taken Unknown] lorazepam 0.5 mg tablet 0.5 mg PO Q6H PRN 05/14/19 [History Last Taken Unknown] oxcarbazepine 300 mg tablet (Trileptal) 300 mg PO QAM 05/14/19 [History Last Taken Unknown] oxcarbazepine 600 mg tablet 600 mg PO QHS 05/14/19 [History Last Taken Unknown] pantoprazole 40 mg tablet,delayed release 40 mg PO DAILY 05/14/19 [History Last Taken Unknown] topiramate 25 mg tablet (Topamax) 25 mg PO BID 05/14/19 [History Last Taken Unknown] ziprasidone HCl 80 mg capsule 80 mg PO BID 05/14/19 [History Last Taken Unknown] Allergy/AdvReac Type Severity Reaction Status Date / Time metoclopramide [From Reglan] Allergy Severe Hives Verified 05/22/22 23:31 calcium [From DHEA] Allergy Chest Verified 05/22/22 23:31 tightness calcium carbonate [From DHEA] Allergy Chest Verified 05/22/22 23:31 tightness cephalexin [From Keflex] Allergy Rash Verified 05/22/22 23:31 ketorolac [From Toradol] Allergy Angioedema Verified 05/22/22 23:31 prasterone (DHEA) [From DHEA] Allergy Chest Verified 05/22/22 23:31 tightness sumatriptan [From Imitrex] Allergy Swelling Verified 05/22/22 23:31 erythromycin base AdvReac Unknown childhood Verified 05/22/22 23:31 reaction, does not recall azithromycin AdvReac Unknown Verified 05/22/22 23:31 Surgical History History of left heart catheterization (04/18/19) Social History Smoking Status: Current every day smoker tobacco type: e-cigarettes ROS ROS ED ROS Narrative Denies recent illness. Review of Systems ROS Unobtainable: Denies due to encephalopathy Constitutional Constitutional ED: Denies chills or fever(s) Eyes Eyes: Denies blurry vision ENT ENT ED: Denies ear pain Cardiovascular Cardiovascular: Denies chest pain Respiratory/Chest Respiratory/Chest: Denies cough or dyspnea Gastrointestinal Gastrointestinal: Denies abdominal pain Genitourinary Genitourinary ED: Denies dysuria Musculoskeletal Musculoskeletal: Denies arthralgias Integumentary Denies abscess Neurologic Neurologic: Denies headache(s) Psychiatric Psychiatric: Reports anxiety, depression, suicidal ideation and suicidal thoughts Endocrine Endocrinology: Denies polydipsia or polyphagia Hematologic/Lymphatic Hematologic/Lymphatic: Denies easy bleeding Allergic/Immunologic Allergic/Immunologic ED: Denies mouth swelling or tongue swelling EXAM Physical Exam Narrative Exam Narrative: Well-appearing 47-year-old female. Vital signs stable afebrile. H EENT exam unremarkable atraumatic. Moist mucous membranes. No smell of alcohol. Neck nontender no lymphadenopathy. No trauma. Lungs clear to auscultation bilaterally. Heart regular rhythm rate about 90 no murmur. Chest were nontender. Abdomen soft nontender. Moving all 4 extremities. Neurovascular intact. Normal motor strength. 5 5 hoop coiler strength. Dorsi plantarflexion intact. No signs of trauma. Back nontender. Neurologically she is awake alert with no focal motor or sensory deficits. She does make eye contact. She is cooperative. Const Vital Signs: 05/22/22 23:26 05/23/22 00:25 05/23/22 01:25 Temperature 98.1 F Temperature Source Temporal Pulse Rate 91 Respiratory Rate 16 16 18 Blood Pressure 187/106 H Blood Pressure Mean 133 Pulse Ox 95 Oxygen Delivery Method Room Air Positive well nourished, well developed and obese; Negative for cachectic, contractures or unkempt General Appearance ED: well developed and NAD; Negative for unkempt, cachectic, contractures or pallor Nutritional Appearance: obese; Negative for cachectic HEENT Reports moist mucous membranes normocephalic and atraumatic; Negative for trauma or tenderness Eyes PERRL and EOMs intact bilaterally General Eye ED: Negative for pale conjunctiva, scleral icterus or other Neck no lymphadenopathy, supple and no JVD General: Negative for tenderness Resp normal respiratory effort and clear to auscultation bilaterally Effort and Inspection: Negative for retractions Auscultation: Negative for rales, rhonchi or wheezes Cardio S1 normal heart sound, S2 normal heart sound and no murmurs Palpation: Negative for other Rate: regular rate Rhythm: regular rhythm GI non-tender, non-distended and no masses Inspection: Negative for abdominal distention Auscultation: normoactive bowel sounds Palpation: soft; Negative for tender Back/Spine no CVA tenderness General Back: Negative for CVA tenderness Cervical Spine: Negative for cervical spine tenderness Thoracic Spine / Upper Back: Negative for thoracic spinal tenderness Lumbar Spine / Lower Back: Negative for lumbar spinal tenderness Coccyx: Negative for other Extremity normal to inspection General Extremety ED: Negative for edema or tenderness General Extremity: Negative for edema Neuro oriented x3, CN's II-XII intact bilaterally and no sensory deficits noted Sensorium / Orientation: alert, oriented to person, oriented to place and oriented to time; Negative for orientation impaired, confused, lethargic or stuporous Motor Exam: strength 5/5 throughout Psych mental status grossly normal, thought process normal, cooperative, affect normal and speech normal; Negative for denies hallucinations or denies suicidal ideation Appearance: grossly normal, appropriate and well kempt; Negative for unkempt, disheveled, bizarre or intubated Attitude: calm, engaged, No paranoid, No withdrawn, No bizarre, No uncooperative, No evasive, No guarded, No belligerent, No agitated and No aggressive Activity / Motor Behavior: appropriate eye contact; Negative for psychomotor agitation, psychomotor slowing, fidgetting, hyperactive or disorganized Speech: normal speech, No incoherent, No excessive and No minimal Mood & Affect: depressed Thought Process: normal thought process, No incoherent, No disorganized, No confused, No confabulating, No flight of ideas, No illogical, No impoverished, No loose associations, No perseverating, No tangential, No word salad and No racing thoughts Thought Content: suicidality Attention / Concentration: attention grossly intact Memory / Cognition: memory grossly intact Insight: insight good Judgement: judgement good Skin General Skin Exam: Negative for jaundice or pallor Lesions: no lesions Rashes: no rashes Trauma: Negative for abrasion Wounds: Negative for amputation MDM MDM MDM Narrative Medical decision making narrative: 47-year-old female history of bipolar schizophrenia. Having both auditory and visual hallucinations. Suicidal with prior attempts in the past but none recently. She is calm and cooperative at this time. She will be given a single dose of p.o. Ativan. Undergo mental health evaluation with a crisis evaluation to determine if she needs placement. Repeat exam patient is doing well at 2:12 AM. I spoke with the crisis personnel at 3:29 AM. They agreed the patient needs psychiatric admission and are working on placement. Lab Data Attestation: I reviewed the patient's lab results. Lab results narrative: CBC shows a white count of 14.2. H&H of 13.1 and 40. Electrolytes unremarkable gap of 7 normal BUN of 12 creatinine 0.6. Glucose 145. Alcohol is negative. Tox screen is positive for opiates only. Serum test is negative. Labs: Laboratory Results - last 24 hr 05/23/22 05/23/22 05/23/22 01:34 01:34 01:34 WBC 14.2 H RBC 4.34 Hgb 13.1 Hct 40.3 MCV 92.9 MCH 30.2 MCHC 32.5 RDW Std Deviation 45.7 H RDW Coeff of Caden 13.4 Plt Count 318 MPV 9.3 Immature Gran % (Auto) 0.800 Neut % (Auto) 42.0 L Lymph % (Auto) 49.[address] [place] % (Auto) 5.1 Eos % (Auto) 1.9 Baso % (Auto) 0.4 Absolute Neuts (auto) 6.0 Absolute Lymphs (auto) 7.06 H Nucleated RBC % 0 Atypical Lymphocytes 1+ Sodium 139 Potassium 3.7 Chloride 105 Carbon Dioxide 27.0 Anion Gap 7 BUN 12 Creatinine 0.63 Estim Creat Clear Calc 97.38 Est GFR (MDRD) Af Amer 132 Est GFR (MDRD) Non-Af 109 BUN/Creatinine Ratio 19.1 Glucose 145 H Calcium 9.0 Serum , Qual Urine Opiates Screen Urine Methadone Screen Ur Barbiturates Screen Ur Phencyclidine Scrn Ur Amphetamines Screen MDMA (Ecstasy) Screen U Benzodiazepines Scrn Urine Cocaine Screen U Cannabinoids Screen Ur Drug Screen Comment Ethyl Alcohol < 3.0 05/23/22 05/23/22 01:34 01:34 WBC RBC Hgb Hct MCV MCH MCHC RDW Std Deviation RDW Coeff of Caden Plt Count MPV Immature Gran % (Auto) Neut % (Auto) Lymph % (Auto) [place] % (Auto) Eos % (Auto) Baso % (Auto) Absolute Neuts (auto) Absolute Lymphs (auto) Nucleated RBC % Atypical Lymphocytes Sodium Potassium Chloride Carbon Dioxide Anion Gap BUN Creatinine Estim Creat Clear Calc Est GFR (MDRD) Af Amer Est GFR (MDRD) Non-Af BUN/Creatinine Ratio Glucose Calcium Serum , Qual NEGATIVE Urine Opiates Screen POSITIVE H Urine Methadone Screen NEGATIVE Ur Barbiturates Screen NEGATIVE Ur Phencyclidine Scrn NEGATIVE Ur Amphetamines Screen NEGATIVE MDMA (Ecstasy) Screen NEGATIVE U Benzodiazepines Scrn NEGATIVE Urine Cocaine Screen NEGATIVE U Cannabinoids Screen NEGATIVE Ur Drug Screen Comment Ethyl Alcohol Discharge Plan Triage Chief Complaint: Suicidal ED Provider: Nain Garcia Dx/Rx/DC Orders Clinical Impression: Depression with suicidal ideation, Bipolar 1 disorder, Schizophrenia, Hallucinations Prescriptions: No Action amlodipine 5 mg tablet 5 mg PO DAILY lidocaine 5 % adhesive patch,medicated 1 patch TOPICAL DAILY lisinopril 40 mg tablet 40 mg PO DAILY amitriptyline 50 mg tablet 50 mg PO QHS aspirin [Adult Aspirin Regimen] 81 mg tablet,delayed release (DR/EC) 81 mg PO DAILY clonidine HCl 0.1 mg tablet 0.1 mg PO TID gabapentin 800 mg tablet 800 mg PO TID hydralazine 100 mg tablet 100 mg PO TID lorazepam 0.5 mg tablet 0.5 mg PO Q6H PRN oxcarbazepine [Trileptal] 300 mg tablet 300 mg PO QAM pantoprazole 40 mg tablet,delayed release (DR/EC) 40 mg PO DAILY topiramate [Topamax] 25 mg tablet 25 mg PO BID tizanidine 4 MG tablet 4 mg PO TID Label Comments: muscle relaxer metformin 1,000 MG tablet 1,000 mg PO BID hydrochlorothiazide 25 MG tablet 25 mg PO DAILY atorvastatin 80 MG tablet 80 mg PO DAILY Qty: 60 0RF carvedilol 6.25 MG tablet 6.25 mg PO BID Qty: 120 0RF ziprasidone HCl 80 mg capsule 80 mg PO BID oxcarbazepine 600 mg tablet 600 mg PO QHS Rx Instructions: q am Primary Care Provider: Fabian Jerome Referrals: Benedicto Carnes DO [Non-Staff] - Disposition Disposition: Psychiatric Hospital or Unit
[2022-05-23] MEDS: LORazepam 1 MG Tablet PO ×2 (00:58→09:28)
[2022-05-23 01:41] LABS: Absolute Lymphocyte Count 7.06 X10^3/uL (0.83-4.51); Basophil# 0.06 X10^3/uL; Basophil% 0.4 % (0-1); Eosinophil# 0.27 X10^3/uL; Eosinophils% 1.9 % (0-5); Hematocrit 40.3 % (37-47); Hemoglobin 13.1 g/dL (12.0-15.0); Lymphocyte # 7.06 X10^3/ul (0.83-4.51); Lymphocyte % 49.8 % (19-41); Mean Corp Hgb Conc 32.5 g/dL (32-36); Mean Corpuscular Hgb 30.2 pg (27.0-32.0); Mean Corpuscular Volume 92.9 fL (81-99); Mean Platelet Vol. 9.3 fl (6.2-12.0); Monocyte# 0.72 X10^3/uL; Monocyte% 5.1 % (0-10); NRBC Flagged by Analyzer 0 % (0-5); Neutrophil # 5.95 X10^3/uL (2.7-7.7); POSITIVE DIFFERENTIAL YES; POSITIVE MORPHOLOGY YES; Platelet Count 318 K/mm3 (150-450); RBC Distribution Width CV 13.4 % (11.6-14.6); RBC Distribution Width SD 45.7 fl (35.1-43.9); Red Blood Count 4.34 M/mm3 (4.2-5.4); White Blood Count 14.2 K/mm3 (4.4-11.0)
[2022-05-23 01:58] LABS: Amphetamine Urine VISTA NEGATIVE (<1000 ng/mL); Barbiturate Urine VISTA NEGATIVE (< 200 ng/mL); Benzodiazepine Urine VISTA NEGATIVE (< 200 ng/mL); Cocaine Urine VISTA NEGATIVE (< 300 ng/mL); Ecstacy Urine VISTA NEGATIVE (< 500 ng/mL); Methadone Urine VISTA NEGATIVE (< 300 ng/mL); PCP Urine VISTA NEGATIVE (< 25 ng/mL); THC Urine VISTA NEGATIVE (< 50 ng/mL); Vista UDS pH Range 6
[2022-05-23 01:59] LABS: Anion Gap 7 (5-15); BUN 12 mg/dL (7-18); BUN/Creat Ratio 19.1 RATIO (10-20); Chloride 105 mmol/L (98-107); Creatinine, Serum 0.63 mg/dL (0.55-1.02); EST Glomerular Filtration Rate 109 mL/min (>60); Est Glom Filt Rate - Afr Amer 132 mL/min (>60); Estimated Creatinine Clearance 97.38 ml/min; Glucose 145 mg/dL (74-106); Potassium 3.7 mmol/L (3.5-5.1); Sodium Level 139 mmol/L (136-145)
[2022-05-23 02:00] LABS: Alcohol, Blood (Medical)-Serum < 3.0 mg/dL
[2022-05-23 02:05] LABS: Differential Indicated SCAN CRITERIA MET
[2022-05-23 02:06] LABS: Atypical Lymphocyte 1+ %
--- NOTE | 2022-05-23 02:14 | NURSING ---
CALLED CRISIS AT 0210
[2022-05-23 02:20] LABS: Internal QC Validated? YES +Cl - CLEAR BKGD; Pregnancy, Serum, hCG Quali. NEGATIVE Negative
--- NOTE | 2022-05-23 05:27 | EKG12_ITS ---
Test Reason : MHC Blood Pressure : / mmHG Vent. Rate : 089 BPM Atrial Rate : 089 BPM P-R Int : 218 ms QRS Dur : 106 ms QT Int : 420 ms P-R-T Axes : 045 049 074 degrees QTc Int : 511 ms Sinus rhythm with 1st degree A-V block Prolonged QT Abnormal ECG Confirmed by LALO MARTIN, CLAUDIA ([id number]), editor at large AILIN SALAZAR ([id number]) on 05/24/2022 2:37:41 PM Referred By: KIP Confirmed By:CLAUDIA MAY MD
--- NOTE | 2022-05-23 10:07 | CM.ED ---
ALIX Note Patient accepted at [facility] per [place] at Crisis. signed pink slip and given to Analilia, legal administrative secretary. Crisis requested a pink slip copy be sent to [facility]. ALIX faxed pink slip copy to [employer]. Kaitlin NAVRARO
--- NOTE | 2022-05-23 10:22 | ED.RN ---
attempted to call report to suman.
--- NOTE | 2022-05-23 10:24 | ED.RN ---
2nd attempt to call suman. no answer
--- NOTE | 2022-05-23 11:15 | CM.ED ---
ALIX Note ALIX met with patient. She was aware that she was going somewhere but did not know where. ALIX updated her that she is going to [facility] in [facility]. Patient called her and updated him regarding that she is going to [facility]. SW remains available if needs arise. Plan: [facility] Kaitlin NAVARRO
--- NOTE | 2022-05-23 11:46 | CM.ED ---
Unique from Crisis called and said that patient was accepted at [facility] with the accepting MD being Dr. Britton and patient is going to the [facility] and RN to RN is [phone]. Kaitlin NAVARRO
== END 2022-05-23 11:34 ==
LOC: ED 05-23 02:00
PROVIDERS: Emergency Provider Emergency Medicine; PCP Student in an Organized Health Care Education/Training Program; Visit Provider Emergency Medicine
DX: F31.9 Bipolar disorder, unspecified (principal); F20.9 Schizophrenia, unspecified; E11.9 Type 2 diabetes mellitus without complications; I10 Essential (primary) hypertension; R45.851 Suicidal ideations; F41.9 Anxiety disorder, unspecified; R94.31 Abnormal electrocardiogram [ECG] [EKG]; I44.0 Atrioventricular block, first degree; I25.2 Old myocardial infarction; F17.210 Nicotine dependence, cigarettes, uncomplicated; Z79.899 Other long term (current) drug therapy; Z79.84 Long term (current) use of oral hypoglycemic drugs; Z79.82 Long term (current) use of aspirin
CPT/HCPCS: 80048; 80307; 82077; 84703; 85025; 87811; 93005; 99285; A4216